=== PATIENT | male | born 1955 | race Caucasian/White ===

== ENCOUNTER 2021-03-18 11:33 | Inpatient (IN) ==
--- NOTE | 2021-03-18 11:46 | Emergency Department Note ---
Impression & Plan Atypical chest pain, Hypertension, Hyperglycemia ED Provider Note NAME: FRANCESCA BUCIO AGE: 65 SEX: M : 1955 ARRIVES VIA: Walk-In INFORMANT: Patient, ED PROVIDER(S): Marcelino Sánchez MD Chief Complaint: Chest pain and arm pain HPI: Patient does present with the above symptoms. Patient states he was at wo rk he did get diaphoretic but had no nausea or vomiting describes some left- sided chest pain with separate left arm pain. Patient describes it as an achiness. Currently rated a 5 out of 10. Patient denies any prior history of heart or lung disease. Non-smoker. The patient does not have any prior history of DVT or PE. Patient denies any fevers chills or or lower extremity swelling. Patient is vaccinated for Covid denies upper respiratory or infectious symptoms. Patient is right-hand dominant denies any trauma to the left upper extremity or overuse. The patient did not take anything prior to arrival. Patient states it does feel slightly improved. Prior. The patient dates that before was 7 out of 10. Patient states that his father of an undisclosed problem in his 40s. He is unsure as to whether not it was heart related. No other reported stroke or heart disease in parents or siblings before the age of 65. ROS: See HPI for pertinent positives and negatives. A total of 10 systems were reviewed and otherwise negative. Past medical history: See below Surgical history: See below Social history: See below Physical Exam: GENERAL: NAD, wearing a mask, non-toxic. EYE EXAM: Normal conjunctiva. PERRL, no anisocoria and EOM's grossly intact w/o pain. NECK: Supple, no nuchal rigidity, no adenopathy, non-tender. No signs of meningismus. LUNGS: Clear to auscultation. Normal chest wall mechanics. HEART: NSR, no MRG. ABDOMEN: Abdomen soft, non-tender, normo-active bowel sounds, no masses, no rebound or guarding. BACK: No CVA TTP. SKIN: No rashes and no bruising. UPPER EXTREMITIES: Upper extremities are grossly normal. LOWER EXTREMITIES: Grossly normal, no edema. Negative Homans' sign bilaterally. NEURO EXAM: A&O x3, cranial nerves II-XII grossly intact, normal speech, moves all 4 extremities on command w/o issue. Differential diagnoses: Cardiac ischemia, aortic dissection, pulmonary embolism, pneumothorax, pneumonia, pericarditis, myocarditis, esophageal rupture, GERD, cholecystitis, pancreatitis, musculoskeletal, as well as other pathologies. Course: Patient was seen and evaluated the bedside. Full history physical exam was performed. EKG interpreted by me Sinus, rate of 97, normal intervals, normal axis, no ST changes. Imaging Studies: See Below Cardiac monitoring: An order was placed for continuous cardiac monitoring. The monitor shows a rate of 92 with sinus rhythm. MDM: Patient did present with concern for chest pain or pain. Patient did have blood work completed. EKG with no obvious ST changes. Patient's blood work does show acute hyperglycemia. The patient states that he was always "borderline." I did discuss with the patient that he has diabetes. The patient did have improvement with nitro and aspirin. Given this and the heart score of 4 I did speak with the on-call hospitalist and the patient was admitted to the medicine service by Dr. Peña. Past Med/Surg History Medical History GERD (gastroesophageal reflux disease) Hypertension Surgical History No pertinent past surgical history Social History Smoking Status: Never smoker Hx Alcohol Use: No Hx Substance Use: No Preferred Language: Malaysian current occupational status: employed current occupation: [employer] Feels Safe at Home: Yes Allergies Allergies Allergy/AdvReac Type Severity Reaction Status Date / Time acetaminophen AdvReac Severe Congested Unverified 03/18/21 15:06 ~ scratchy throat Home Meds Home Medications Medication Instructions Recorded Confirmed lisinopril 40 mg tablet (Zestril) 40 mg PO QAM 03/18/21 03/18/21 omeprazole 40 mg capsule,delayed 40 mg PO QAM 03/18/21 03/18/21 release Results & Data (ED) Vital Signs Vital Signs - 24 hr 03/18/21 11:39 03/18/21 11:51 03/18/21 12:00 Temperature 36.9 C Temperature Source Temporal Artery Scan Pulse Rate 104 H 97 H 99 H Pulse Rate from SpO2 Sensor 96 H 100 H Respiratory Rate 20 12 24 Respiratory Effort / Characteristics Non-Labored Accessory Muscle Use Respiratory Depth Normal Blood Pressure 179/111 H 169/107 H 166/128 H Blood Pressure Mean 133 127 140 Blood Pressure Position Sitting Pulse Oximetry 97 99 98 Oxygen Delivery Method Room Air Oxygen Flow Rate Sepsis Recent Fever Within 48 Hours No Sepsis New/Unexplained Change in Mental Status N/A Sepsis Action Taken by Nursing No Action Required 03/18/21 12:19 03/18/21 12:30 03/18/21 13:00 Temperature Temperature Source Pulse Rate 93 H 92 H Pulse Rate from SpO2 Sensor 92 H 91 H Respiratory Rate 14 13 Respiratory Effort / Characteristics Respiratory Depth Blood Pressure 162/100 H 149/103 H Blood Pressure Mean 120 118 Blood Pressure Position Pulse Oximetry 98 97 99 Oxygen Delivery Method Nasal Cannula Oxygen Flow Rate 0 Sepsis Recent Fever Within 48 Hours Sepsis New/Unexplained Change in Mental Status Sepsis Action Taken by Nursing 03/18/21 13:30 03/18/21 14:00 03/18/21 14:30 Temperature Temperature Source Pulse Rate 93 H 92 H 90 Pulse Rate from SpO2 Sensor 94 H 93 H 88 Respiratory Rate 7 L 17 10 L Respiratory Effort / Characteristics Respiratory Depth Blood Pressure 163/100 H 141/82 H 149/78 H Blood Pressure Mean 121 101 101 Blood Pressure Position Pulse Oximetry 94 96 96 Oxygen Delivery Method Oxygen Flow Rate Sepsis Recent Fever Within 48 Hours Sepsis New/Unexplained Change in Mental Status Sepsis Action Taken by Nursing 03/18/21 15:00 03/18/21 15:30 03/18/21 16:00 Temperature Temperature Source Pulse Rate 87 86 87 Pulse Rate from SpO2 Sensor 87 Respiratory Rate 11 L 16 10 L Respiratory Effort / Characteristics Respiratory Depth Blood Pressure 163/110 H 159/99 H 156/101 H Blood Pressure Mean 127 119 119 Blood Pressure Position Pulse Oximetry 98 Oxygen Delivery Method Oxygen Flow Rate Sepsis Recent Fever Within 48 Hours Sepsis New/Unexplained Change in Mental Status Sepsis Action Taken by Nursing 03/18/21 16:30 Temperature Temperature Source Pulse Rate 84 Pulse Rate from SpO2 Sensor 86 Respiratory Rate 15 Respiratory Effort / Characteristics Respiratory Depth Blood Pressure 158/101 H Blood Pressure Mean 120 Blood Pressure Position Pulse Oximetry 95 Oxygen Delivery Method Oxygen Flow Rate Sepsis Recent Fever Within 48 Hours Sepsis New/Unexplained Change in Mental Status Sepsis Action Taken by [facility] Medications Current Medication List: was personally reviewed by me Laboratory Data Attestation: I reviewed the patient's lab results. Result diagrams: 03/18/21 11:51 03/18/21 11:51 Lab Results 03/18/21 03/18/21 03/18/21 Range/Units 11:51 11:51 11:51 WBC 9.01 (4.8-10.8) K/uL RBC 4.66 L (4.7-6.1) M/uL Hgb 16.1 (14.0-18.0) g/dL Hct 45.8 (42-52) % MCV 98.3 (80-100) fL MCH 34.5 H (25-34) pg MCHC 35.2 (32-36) g/dL RDW Std Deviation 43.3 (36.4-46.3) fL RDW Coeff of Silke 12.3 (11.5-14.5) % Plt Count 279 (130-400) K/uL MPV 10.2 (7.4-10.4) fL Immature Gran % (Auto) 0.2 % Neut % (Auto) 64.9 % Lymph % (Auto) 26.5 % [place] % (Auto) 5.7 % Eos % (Auto) 2.0 % Baso % (Auto) 0.7 % Neut # (Auto) 5.85 (1.4-6.5) K/uL Lymph # (Auto) 2.39 (1.2-3.4) K/uL [place] # (Auto) 0.51 (0.11-0.59) K/uL Eos # (Auto) 0.18 (0-0.5) K/uL Baso # (Auto) 0.06 (0-0.2) K/uL Immature Gran # (Auto) 0.02 (0.00-0.02) K/uL APTT 27.3 (21.0-31.0) Seconds PTT Ratio 1.0 Sodium 134 L (136-145) mmol/L Potassium 4.0 (3.5-5.1) mmol/L Chloride 99 (98-107) mmol/L Carbon Dioxide 25 (21-32) mmol/L Anion Gap 11.0 (3-11) BUN 14 (7-18) mg/dl Creatinine 1.30 (0.6-1.4) mg/dl Est Cr Clr Drug Dosing 65.6 ml/min Est GFR ( Amer) 67.3 ml/min Est GFR (Non-Af Amer) 58.1 ml/min BUN/Creatinine Ratio 10.5 (10-20) Glucose 472 H* (70-99) mg/dl POC Glucose (70-99) mg/dl Calcium 9.2 (8.5-10.1) mg/dl Total Bilirubin 0.5 (0.2-1) mg/dl AST 13 L (15-37) U/L ALT 34 (12-78) U/L Alkaline Phosphatase 74 (45-117) U/L Troponin I < 0.015 (0-0.045) ng/ml Total Protein 8.1 (6.4-8.2) gm/dl Albumin 4.2 (3.4-5.0) gm/dl Globulin 3.9 (2.5-4.0) gm/dl Albumin/Globulin Ratio 1.1 (0.9-2) Lipase 147 (73-393) U/L Beta-Hydroxybutyric Acd 1.12 (0.2-2.81) mg/dl COVID-19 Eval Order SARS-CoV-2 (PCR) (Negative) 03/18/21 03/18/21 03/18/21 Range/Units 14:56 14:56 14:57 WBC (4.8-10.8) K/uL RBC (4.7-6.1) M/uL Hgb (14.0-18.0) g/dL Hct (42-52) % MCV (80-100) fL MCH (25-34) pg MCHC (32-36) g/dL RDW Std Deviation (36.4-46.3) fL RDW Coeff of Silke (11.5-14.5) % Plt Count (130-400) K/uL MPV (7.4-10.4) fL Immature Gran % (Auto) % Neut % (Auto) % Lymph % (Auto) % [place] % (Auto) % Eos % (Auto) % Baso % (Auto) % Neut # (Auto) (1.4-6.5) K/uL Lymph # (Auto) (1.2-3.4) K/uL [place] # (Auto) (0.11-0.59) K/uL Eos # (Auto) (0-0.5) K/uL Baso # (Auto) (0-0.2) K/uL Immature Gran # (Auto) (0.00-0.02) K/uL APTT (21.0-31.0) Seconds PTT Ratio Sodium (136-145) mmol/L Potassium (3.5-5.1) mmol/L Chloride (98-107) mmol/L Carbon Dioxide (21-32) mmol/L Anion Gap (3-11) BUN (7-18) mg/dl Creatinine (0.6-1.4) mg/dl Est Cr Clr Drug Dosing ml/min Est GFR ( Amer) ml/min Est GFR (Non-Af Amer) ml/min BUN/Creatinine Ratio (10-20) Glucose (70-99) mg/dl POC Glucose 349 H* (70-99) mg/dl Calcium (8.5-10.1) mg/dl Total Bilirubin (0.2-1) mg/dl AST (15-37) U/L ALT (12-78) U/L Alkaline Phosphatase (45-117) U/L Troponin I (0-0.045) ng/ml Total Protein (6.4-8.2) gm/dl Albumin (3.4-5.0) gm/dl Globulin (2.5-4.0) gm/dl Albumin/Globulin Ratio (0.9-2) Lipase (73-393) U/L Beta-Hydroxybutyric Acd (0.2-2.81) mg/dl COVID-19 Eval Order Covid19 at [facility] SARS-CoV-2 (PCR) NEGATIVE (Negative) Administered Medications Sodium Chloride (Nss) 500 mls @ 250 mls/hr IV .Q2H JASMIN Stop: 04/17/21 14:59 Last Admin: 03/18/21 15:59 Dose: 250 mls/hr Documented by: [id number] Nitroglycerin (Nitroglycerin Sl 0.4 Mg/Tab Tab) 0.4 mg SL PRN PRN PRN Reason: Chest Pain Stop: 04/17/21 13:10 Last Admin: 03/18/21 13:43 Dose: 0.4 mg Documented by: [id number] Nitroglycerin (Nitroglycerin 2% Ointment 30gm Tube) 1 inch EXT Q6H JASMIN Stop: 04/17/21 15:59 Last Admin: 03/18/21 16:11 Dose: 1 inch Documented by: [id number] Discontinued Medications Acetaminophen (Acetaminophen 500 Mg Tab) 1,000 mg PO NOW STA Stop: 03/18/21 13:12 Last Admin: 03/18/21 13:17 Dose: Not Given Documented by: [id number] Aspirin (Aspirin Chew 324 Mg) 324 mg PO NOW STA Stop: 03/18/21 13:12 Last Admin: 03/18/21 13:17 Dose: 324 mg Documented by: [id number] Nitroglycerin (Nitroglycerin Sl 0.4 Mg/Tab Tab) 0.4 mg SL NOW STA Stop: 03/18/21 13:12 Last Admin: 03/18/21 13:18 Dose: 0.4 mg Documented by: [id number] Imaging Data Radiologist's Impression: Chest X-Ray 03/18/21 12:17 XR chest 1V portable HISTORY: 65 years-old Male Chest Pain acute atypical chest pain COMPARISON: None TECHNIQUE: Portable AP view of the chest FINDINGS: Cardiac silhouette is upper limits of normal in size. Mild mediastinal widening may be projectional. No pneumothorax, pleural effusion, airspace consolidation or overt pulmonary edema. Degenerative changes of the shoulders and spine. IMPRESSION: No acute process. ACT 112: Negative or not required by law. The above report was generated using voice recognition software. It may contain grammatical, syntax or spelling errors. Electronically signed by: Jordi Hahn M.D. 03/18/2021 1:22 PM Discharge Plan Visit Data Chief Complaint: Cardiac Assessment Stated Complaint: SWEATING AND WEAKNESS IN ARMS ED Provider: Marcelino Sánchez Discharge Problem: Atypical chest pain, Hypertension, Hyperglycemia Patient Disposition: Admitted As Inpatient Forms Stand Alone Forms: [facility] Prescriptions Prescriptions: No Action omeprazole 40 mg capsule,delayed release(DR/EC) 40 mg PO QAM RF: 0 lisinopril [Zestril] 40 mg tablet 40 mg PO QAM RF: 0 Referrals Referrals: PCP,NO [Physician] -
[2021-03-18 12:28] LABS: Basophils # (auto) 0.06 K/uL (0-0.2); Basophils % (auto) 0.7 %; Eosinophils # (auto) 0.18 K/uL (0-0.5); Hematocrit (blood only) 45.8 % (42-52); Hemoglobin 16.1 g/dL (14.0-18.0); Immature Granulocytes # (auto) 0.02 K/uL (0.00-0.02); Immature Granulocytes % (auto) 0.2 %; Lymphocytes # (auto) 2.39 K/uL (1.2-3.4); Lymphocytes % (auto) 26.5 %; Mean Corpuscular Hemoglobin 34.5 pg (25-34); Mean Corpuscular Hgb Conc 35.2 g/dL (32-36); Mean Corpuscular Volume 98.3 fL (80-100); Mean Platelet Volume 10.2 fL (7.4-10.4); Monocytes # (auto) 0.51 K/uL (0.11-0.59); Monocytes % (auto) 5.7 %; Neutrophils # (auto) 5.85 K/uL (1.4-6.5); Neutrophils % (auto) 64.9 %; Platelet Count 279 K/uL (130-400); RDW Coefficient of Variation 12.3 % (11.5-14.5); RDW Standard Deviation 43.3 fL (36.4-46.3); Red Blood Count 4.66 M/uL (4.7-6.1); White Blood Count 9.01 K/uL (4.8-10.8)
[2021-03-18 12:39] LABS: Partial Thromboplastin Time 27.3 Seconds (21.0-31.0)
[2021-03-18 12:46] LABS: Alanine Aminotransferase 34 U/L (12-78); Albumin Globulin Ratio 1.1 (0.9-2); Albumin Level 4.2 gm/dl (3.4-5.0); Alkaline Phosphatase 74 U/L (45-117); Aspartate Aminotransferase 13 U/L (15-37); BUN Creatinine Ratio 10.5 (10-20); Bilirubin,Total 0.5 mg/dl (0.2-1); Blood Urea Nitrogen 14 mg/dl (7-18); Calcium 9.2 mg/dl (8.5-10.1); Carbon Dioxide 25 mmol/L (21-32); Chloride 99 mmol/L (98-107); Creatinine Clr Calc Pharmacy 65.6 ml/min; Est GFR (African American) 67.3 ml/min; Est GFR (Non-African American) 58.1 ml/min; Globulin 3.9 gm/dl (2.5-4.0); Glucose 472 mg/dl (70-99); Lipase 147 U/L (73-393); Sodium 134 mmol/L (136-145); Total Protein 8.1 gm/dl (6.4-8.2); Troponin I < 0.015 ng/ml (0-0.045)
[2021-03-18 13:06] LABS: Beta-Hydroxybutyrate 1.12 mg/dl (0.2-2.81)
[2021-03-18] MEDS ORDERED: NITROGLYCERIN SL 0.4 MG/TAB TAB SL STA (13:11)
[2021-03-18] MEDS ORDERED: NITROGLYCERIN SL 0.4 MG/TAB TAB SL PRN (13:11)
[2021-03-18] MEDS ORDERED: ACETAMINOPHEN 500 MG TAB PO STA (13:11)
[2021-03-18] MEDS ORDERED: ASPIRIN CHEW 324 MG PO STA (13:11)
--- NOTE | 2021-03-18 13:24 | XRay Report ---
XR chest 1V portable HISTORY: 65 years-old Male Chest Pain acute atypical chest pain COMPARISON: None TECHNIQUE: Portable AP view of the chest FINDINGS: Cardiac silhouette is upper limits of normal in size. Mild mediastinal widening may be projectional. No pneumothorax, pleural effusion, airspace consolidation or overt pulmonary edema. Degenerative darnell ges of the shoulders and spine. IMPRESSION: No acute process. ACT 112: Negative or not required by law. The above report was generated using voice recognition software. It may contain grammatical, syntax o r spelling errors. Electronically signed by: Jordi Hahn M.D. 03/18/2021 1:22 PM
--- NOTE | 2021-03-18 15:15 | History & Physical Report ---
Date of Service March 18, 2021 Assessment & Plan (1) Left arm pain: Plan: Exertional chest tightness and left arm pain/diaphoresis/hypertension- The patient will be admitted to telemetry for serial cardiac enzymes, serial EKG's, cardiac rhythm monitoring and a 2-D echocardiogram with Dopplers. Symptoms were completely relieved by given aspirin and nitroglycerin sublingual in the ED Start aspirin 81 mg daily Continue lisinopril 40 mg every morning Add Nitropaste 1 inch anterior chest wall every 6 hours (2) Diaphoresis: Plan: See above (3) Hypertension: Plan: See above (4) Hyperglycemia: Plan: Initial glucose 472 on BMP Follow-up fingerstick was 349 Give 500 cc normal saline, and recheck Place on Accu-Cheks before meals and at bedtime with NovoLog coverage per scale Check hemoglobin A1c and fasting lipid panel (5) GERD (gastroesophageal reflux disease): Plan: Continue omeprazole/pantoprazole History of Present Illness Chief Complaint: The patient presents to the emergency department after having a episode at work of severe sweats and left arm pain of duration 30 to 45 minutes, that was partially relieved by rest, and remained relieved by aspirin insulin nitroglycerin in the ED. Primary Care Provider: Wilfred Weber MD The patient is a 65-year-old male with a past medical history including hypertension cervical disc disease, and GERD, with a recent 20 pound weight loss, who presents to the emergency department with acute episode noted at work. He has not had these symptoms before. He does have history of cervical disc disease that causes some neck discomfort and right shoulder discomfort. He denies any associated lightheadedness, dizziness or near syncopal symptoms. Allergies Allergy/AdvReac Type Severity Reaction Status Date / Time acetaminophen AdvReac Severe Congested Unverified 03/18/21 15:06 ~ scratchy throat Home Medications Medication Instructions Recorded Confirmed Type lisinopril 40 mg tablet (Zestril) 40 mg PO QAM 03/18/21 03/18/21 History omeprazole 40 mg capsule,delayed 40 mg PO QAM 03/18/21 03/18/21 History release Past Med/Surg History Medical History (Updated 03/18/21 @ 15:50 by Alex Delgado MD) GERD (gastroesophageal reflux disease) Hypertension Surgical History No pertinent past surgical history Social History Smoking Status: Never smoker Hx Alcohol Use: No Hx Substance Use: No Preferred Language: Maltese current occupational status: employed current occupation: [employer] mechanic Feels Safe at Home: Yes Review of Systems Review of Systems: The patient denies palpitations, shortness of breath, dyspnea on exertion, cough, lower extremity swelling, sore throat, fevers, chills, sweats, weight change, fatigue, nausea, vomiting, diarrhea , constipation, abdominal pain, pelvic pain, blood in urine or stool, dysuria, urinary frequency or urgency, lightheadedness, dizziness, headache, memory loss, loss of consciousness, rash, abnormal bruising or bleeding, imbalance, focal or generalized weakness, numbness or tingling in legs, generalized arthralgias or myalgias, or night sweats. The review of systems is otherwise negative other than for that already noted above, and at least 10 systems have been reviewed. Physical Exam Physical Exam: The patient is awake, alert and oriented 3, well developed and well nourished, normocephalic and atraumatic, lying in bed and in no acute distress. HEENT--PERRL, EOMI, mucous membranes and oropharynx normal Neck--supple. No JVD. No bruits. Thyroid normal, trachea midline, no adenopathy. Heart--normal S1 and S2. No murmurs, rubs or gallops. Lungs--clear bilaterally, no respiratory distress, no accessory muscle use. Abdomen--normal bowel sounds and soft. Nontender. Nondistended, no hernias or masses, no organomegaly. Extremities--no cyanosis or clubbing. No edema. . Dermatologic--normal skin turgor, normal color, no abnormal lymph nodes, no rash. Neurologic--cranial nerves II through XII grossly intact. Rheumatologic--normal range of motion. Psychiatric--normal affect. Results & Data Results & Data ([facility]) Vital Signs (Past 12 Hours) Vital Signs Temp Pulse Resp BP Pulse Ox 03/18/21 14:30 90 10 L 149/78 H 96 03/18/21 14:00 92 H 17 141/82 H 96 03/18/21 13:30 93 H 7 L 163/100 H 94 03/18/21 13:00 92 H 13 149/103 H 99 03/18/21 12:30 93 H 14 162/100 H 97 03/18/21 12:19 98 03/18/21 12:00 99 H 24 166/128 H 98 03/18/21 11:51 97 H 12 169/107 H 99 03/18/21 11:39 98.4 F 104 H 20 179/111 H 97 Laboratory Results Laboratory Results WBC 9.01 K/uL (4.8-10.8) 03/18/21 11:51 RBC 4.66 M/uL (4.7-6.1) L 03/18/21 11:51 Hgb 16.1 g/dL (14.0-18.0) 03/18/21 11:51 Hct 45.8 % (42-52) 03/18/21 11:51 MCV 98.3 fL (80-100) 03/18/21 11:51 MCH 34.5 pg (25-34) H 03/18/21 11:51 MCHC 35.2 g/dL (32-36) 03/18/21 11:51 RDW Std Deviation 43.3 fL (36.4-46.3) 03/18/21 11:51 RDW Coeff of Silke 12.3 % (11.5-14.5) 03/18/21 11:51 Plt Count 279 K/uL (130-400) 03/18/21 11:51 MPV 10.2 fL (7.4-10.4) 03/18/21 11:51 Immature Gran % (Auto) 0.2 % 03/18/21 11:51 Neut % (Auto) 64.9 % 03/18/21 11:51 Lymph % (Auto) 26.5 % 03/18/21 11:51 [place] % (Auto) 5.7 % 03/18/21 11:51 Eos % (Auto) 2.0 % 03/18/21 11:51 Baso % (Auto) 0.7 % 03/18/21 11:51 Neut # (Auto) 5.85 K/uL (1.4-6.5) 03/18/21 11:51 Lymph # (Auto) 2.39 K/uL (1.2-3.4) 03/18/21 11:51 [place] # (Auto) 0.51 K/uL (0.11-0.59) 03/18/21 11:51 Eos # (Auto) 0.18 K/uL (0-0.5) 03/18/21 11:51 Baso # (Auto) 0.06 K/uL (0-0.2) 03/18/21 11:51 Immature Gran # (Auto) 0.02 K/uL (0.00-0.02) 03/18/21 11:51 APTT 27.3 Seconds (21.0-31.0) 03/18/21 11:51 PTT Ratio 1.0 03/18/21 11:51 Sodium 134 mmol/L (136-145) L 03/18/21 11:51 Potassium 4.0 mmol/L (3.5-5.1) 03/18/21 11:51 Chloride 99 mmol/L (98-107) 03/18/21 11:51 Carbon Dioxide 25 mmol/L (21-32) 03/18/21 11:51 Anion Gap 11.0 (3-11) 03/18/21 11:51 BUN 14 mg/dl (7-18) 03/18/21 11:51 Creatinine 1.30 mg/dl (0.6-1.4) 03/18/21 11:51 Est Cr Clr Drug Dosing 65.6 ml/min 03/18/21 11:51 Est GFR ( Amer) 67.3 ml/min 03/18/21 11:51 Est GFR (Non-Af Amer) 58.1 ml/min 03/18/21 11:51 BUN/Creatinine Ratio 10.5 (10-20) 03/18/21 11:51 Glucose 472 mg/dl (70-99) H* 03/18/21 11:51 POC Glucose 349 mg/dl (70-99) H* 03/18/21 14:57 Calcium 9.2 mg/dl (8.5-10.1) 03/18/21 11:51 Total Bilirubin 0.5 mg/dl (0.2-1) 03/18/21 11:51 AST 13 U/L (15-37) L 03/18/21 11:51 ALT 34 U/L (12-78) 03/18/21 11:51 Alkaline Phosphatase 74 U/L (45-117) 03/18/21 11:51 Troponin I < 0.015 ng/ml (0-0.045) 03/18/21 11:51 Total Protein 8.1 gm/dl (6.4-8.2) 03/18/21 11:51 Albumin 4.2 gm/dl (3.4-5.0) 03/18/21 11:51 Globulin 3.9 gm/dl (2.5-4.0) 03/18/21 11:51 Albumin/Globulin Ratio 1.1 (0.9-2) 03/18/21 11:51 Lipase 147 U/L (73-393) 03/18/21 11:51 Beta-Hydroxybutyric Acd 1.12 mg/dl (0.2-2.81) 03/18/21 11:51 COVID-19 Eval Order Covid19 at [facility] 03/18/21 14:56 Impressions Chest X-Ray 03/18/21 12:17 XR chest 1V portable HISTORY: 65 years-old Male Chest Pain acute atypical chest pain COMPARISON: None TECHNIQUE: Portable AP view of the chest FINDINGS: Cardiac silhouette is upper limits of normal in size. Mild mediastinal widening may be projectional. No pneumothorax, pleural effusion, airspace consolidation or overt pulmonary edema. Degenerative changes of the shoulders and spine. IMPRESSION: No acute process. ACT 112: Negative or not required by law. The above report was generated using voice recognition software. It may contain grammatical, syntax or spelling errors. Electronically signed by: Jordi Hahn M.D. 03/18/2021 1:22 PM Code Status & VTE Plan Code Status Full code VTE Prophylaxis Plan VTE Prophylaxis will be ordered: Yes PG Care Time/CCT Total # of Minutes Spent Total Time Spent with Patient: Total time spent is greater than 50% in coordination of care (as documented) at patient's floor/unit and/or counseling patient: Coding Level of Care Code INT OBSERVATION CARE 70M LVL 3 Diagnoses Hypertension I10 GERD (gastroesophageal reflux disease) K21.9 Diaphoresis R61 Left arm pain M79.602 Hyperglycemia R73.9
[2021-03-18] MEDS: SODIUM CHLORIDE 0.9% 500 ML IV SCH ×4 (15:59→22:00)
--- NOTE | 2021-03-18 16:06 | Electrocardiogram Report ---
Test Reason : Blood Pressure : / mmHG Vent. Rate : 097 BPM Atrial Rate : 097 BPM P-R Int : 144 ms QRS Dur : 088 ms QT Int : 362 ms P-R-T Axes : 043 003 044 degrees QTc Int : 459 ms Poor data quality, interpretation may be adversely affected Sinus rhythm with occasional Premature ventricular complexes Otherwise normal ECG No previous ECGs available Confirmed by Cuauhtemoc Arenas ([id number]) on 03/18/2021 4:06:10 PM Referred By: REFERRED SELF Confirmed By:Roberto Arenas
[2021-03-18] MEDS: NITROGLYCERIN 2% OINTMENT 30GM TUBE EXT SCH ×2 (16:11→20:54)
[2021-03-18] MEDS ORDERED: GLUCOSE 10 TABS/TUBE PO PRN (19:46)
[2021-03-18] MEDS ORDERED: GLUCOSE 40% GEL 15 GM TUBE PO PRN (19:46)
[2021-03-18] MEDS ORDERED: ONDANSETRON INJ 2 MG/ML 2 ML VIAL IV PRN (19:46)
[2021-03-18] MEDS ORDERED: DEXTROSE 50% 50 ML SYRINGE IV PRN (19:46)
[2021-03-18] MEDS ORDERED: CARBOHYDRATES FOR HYPOGLYCEMIA PO PRN (19:46)
[2021-03-18] MEDS ORDERED: GLUCAGON FOR INJ 1 MG VIAL SQ PRN (19:46)
[2021-03-18] MEDS ORDERED: NSS + 20MEQ KCL 20 MEQ/1,000 ML BAG IV SCH (20:15)
[2021-03-18] MEDS: INSULIN ASPART 100 UNITS/ML 3 ML PEN SC SCH ×2 (20:56→21:00)
[2021-03-18] MEDS ORDERED: METOPROLOL TARTRATE 25 MG TAB PO STA (21:14)
[2021-03-18] MEDS ORDERED: Influenza Vaccine (Fluarix) 0.5 ML SYR (Standard Dose) IM ONE (22:00)
[2021-03-18] MEDS ORDERED: Nursing to Pharmacy Communication SCH (22:45)
[2021-03-19] MEDS ORDERED: Heparin IV Adult Wt-Based Standard *NO* Bolus Protocol IV ONE (02:04)
[2021-03-19] MEDS: HEPARIN SODIUM/DEXTROSE 25,000 UNITS/500 ML BAG IV SCH ×2 (03:18→20:41)
[2021-03-19] MEDS: NITROGLYCERIN 2% OINTMENT 30GM TUBE EXT SCH ×4 (03:19→20:48)
[2021-03-19 04:03] LABS: Basophils # (auto) 0.05 K/uL (0-0.2); Basophils % (auto) 0.5 %; Eosinophils # (auto) 0.24 K/uL (0-0.5); Eosinophils % (auto) 2.2 %; Hematocrit (blood only) 39.9 % (42-52); Hemoglobin 13.8 g/dL (14.0-18.0); Immature Granulocytes # (auto) 0.02 K/uL (0.00-0.02); Immature Granulocytes % (auto) 0.2 %; Lymphocytes # (auto) 2.63 K/uL (1.2-3.4); Mean Corpuscular Hgb Conc 34.6 g/dL (32-36); Mean Corpuscular Volume 95.5 fL (80-100); Mean Platelet Volume 9.7 fL (7.4-10.4); Monocytes # (auto) 0.87 K/uL (0.11-0.59); Monocytes % (auto) 7.9 %; Neutrophils # (auto) 7.17 K/uL (1.4-6.5); Neutrophils % (auto) 65.2 %; Platelet Count 246 K/uL (130-400); RDW Coefficient of Variation 12.2 % (11.5-14.5); RDW Standard Deviation 42.6 fL (36.4-46.3); Red Blood Count 4.18 M/uL (4.7-6.1); White Blood Count 10.98 K/uL (4.8-10.8)
[2021-03-19 04:39] LABS: Albumin Level 3.1 gm/dl (3.4-5.0); BUN Creatinine Ratio 13.7 (10-20); Calcium 8.6 mg/dl (8.5-10.1); Creatinine Clr Calc Pharmacy 88.7 ml/min; Est GFR (African American) 98.3 ml/min; Est GFR (Non-African American) 84.9 ml/min; Magnesium 1.7 mg/dl (1.8-2.4)
[2021-03-19 04:43] LABS: Albumin Globulin Ratio 1.1 (0.9-2); Bilirubin,Total 0.9 mg/dl (0.2-1); Globulin 2.9 gm/dl (2.5-4.0); Troponin I 9.74 ng/ml (0-0.045)
[2021-03-19 05:40] LABS: Potassium 4.2 mmol/L (3.5-5.1)
[2021-03-19 07:34] LABS: Estimated Average Glucose 275 mg/dl; Hemoglobin A1C 11.2 % (4.5-5.6)
[2021-03-19] MEDS: INSULIN ASPART 100 UNITS/ML 3 ML PEN SC SCH ×3 (07:54→20:43)
--- NOTE | 2021-03-19 08:36 | Hospitalist Progress Note ---
Date of Service March 19, 2021 Assessment & Plan (1) NSTEMI (non-ST elevated myocardial infarction): (2) Hypertension: (3) Diabetes type 2, uncontrolled: Plan: 65-year-old male with a past medical history including hypertension cervical disc disease, and GERD, with a recent 20 pound weight loss, who presents to the emergency department with acute episode noted at work. (1) NSTEMI -Exertional chest tightness and left arm pain/diaphoresis/hypertension -Chest XR: no acute processes -EKG: Normal sinus with T wave abnormalities in inferior and lateral leads -on tele, Trops: 7.79 --> 9.7 --> trending -Echo: regional wall motion abnormalities, EF 30-35%, reduced left ventricular systolic dysfunction -Cath performed --> need for CABG, will be transferred to tertiary center, CABG expected on Wednesday -cont. heparin, metoprolol, NTG. -consider starting statin. (2) HTN -cont. lisinopril (3) DM2 -A1C 11.2, LDL 172, Chol 252, TG 183 -glucose was in 300s, now stable in 100s. On SSS. -following with pharmacy -In outpatient setting, consider placing patient on metformin, ozempic, and jardiance. May consider initiating tomorrow. Admission and Anticipated Discharge Date Admission Date: March 18, 2021 Supervising Physician Co-Signing Physician Notes Attending attestation Pt seen and examined in concert with Dr. Montague. In agreement with the documented findings as noted in the resident documentation with any exceptions or additions as noted here. Original presentation of chest discomfort resolved without resumption at rest or with light activity. On examination, S1/S2 nl RRR no MCG. CTAB. Abd NT/ND BS+ve NSTEMI - cardio consult - cath today - statin, ASA (and potentially Plavix), metoprolol. Heparin GTT - cards recommendation for transfer for CABG pending. New dx of DMII - ISS with basal - following discharge to assume metformin, GLP and SGLT for cardio protective properties Else see resident documentation as noted. Subjective Comfortable in bed. However, just came back from his heart cath and was sweating with some dark specs in his vision on the elevator ride back to his room. Denies chest pain, palpitations, SOB, fatigue, MENDOZA, N/V/D. Review of Systems Review of Systems: All systems reviewed & are unremarkable except as noted in HPI & below Physical Exam Constitutional: WD/WN, vitals as above well developed, well nourished and + acute distress Eyes: PERRL, conjunctivae normal, anicteric sclerae ENMT: external ear and nose normal, oropharynx normal Respiratory: normal respiratory effort, lungs clear to auscultation Cardiovascular: RRR, no murmur, no edema Vessels: no JVD Gastrointestinal (Abdomen): normal bowel sounds, soft, nontender, no hepatosplenomegaly Musculoskeletal: no cyanosis or clubbing, extremities motor strength 5/5 Skin: No rashes, warm, diaphoretic Neurologic: patellar DTR's 2+ bilat, sensation intact Psychiatric: A+Ox3, euthymic affect Results & Data Results & Data ([facility]) Vital Signs (Past 12 Hours) Vital Signs Temp Pulse Pulse Resp BP BP Pulse Ox 03/19/21 07:28 83 03/19/21 07:08 37.3 C 74 19 127/80 94 03/19/21 03:25 37.6 C H 81 16 133/88 97 03/18/21 23:26 37.8 C H 89 149/90 H 95 03/18/21 23:00 97 H 03/18/21 20:45 37.5 C 97 H 18 169/109 H 161/104 H 96 Resident Activity Tracking Resident Involvement: Resident Care Provided Care Provided: Adult Hospital Medicine (1) Hypertension Hypertension type: unspecified Qualified Code(s): I10 - Essential (primary) hypertension
[2021-03-19] MEDS ORDERED: PHARMACY GLYCEMIC MGMT CONSULT PRN (09:53)
--- NOTE | 2021-03-19 09:53 | Cardiology Consultation ---
Date of Consultation March 19, 2021 Assessment & Plan (1) NSTEMI (non-ST elevated myocardial infarction): Patient's symptoms and objective findings are all consistent with an acute coronary event. He certainly has risk factors for coronary disease including undiagnosed diabetes mellitus, significant hyperlipidemia, male gender and hypertension. His echocardiogram is curious in that the entire apex appears dyskinetic. This would suggest a significant infarct versus stress cardiomyopat hy. I would favor a the former given his risk factors, but we will need to perform coronary angiography in any regard. I did explain the risks benefits and alternatives to the patient. I recommended coronary angiography and will plan on proceeding later today. Continue systemic heparinization. Will continue nitropaste for now. He was given 1 dose of beta-blockade which we will continue. Continue lisinopril. (2) Cardiomyopathy: He has significantly reduced LV systolic function. No symptoms of heart failure. Likely related to his event yesterday. Most likely ischemic in nature. Hopefully he will have options for revascularization. An alternate possibility would be a stress cardiomyopathy. This would need to be managed medically. History of Present Illness Reason for Consultation: Chest pain, elevated troponin Requesting Physician: Danny Attending Physician: Ray Alba MD History of Present Illness The patient is a 65-year-old gentleman with a history of high blood pressure who experienced an episode of chest and left arm discomfort yesterday. The patient was at work but not performing strenuous activity. He states that the back of his left arm began to ache. This did not include jaw or back discomfort. It may been some element of chest pressure as well. Prior to development of the sy mptoms he was notably diaphoretic. He did not felt poorly her earlier in the day other than perhaps some mild tiredness. He cannot recall symptoms of this nature in the past. Due to the unusual in prolonged nature of the symptoms he presented to the emergency room where he was given nitroglycerin. This produced relief of his symptoms. They have not recurred. The patient states that generally speaking he can perform mild to moderate activity without symptom. He does not describe exertional chest discomfort or limiting dyspnea leading up to yesterday's episode. He denies dizziness or lig htheadedness. He has not been aware of any palpitations. No orthopnea or paroxysmal nocturnal dyspnea. He does endorse symptoms of indigestion. However, these been present for years. They occur spontaneously perhaps twice per week. Nonexertional. Allergies Allergy/AdvReac Type Severity Reaction Status Date / Time acetaminophen AdvReac Severe Congested Unverified 03/18/21 15:06 ~ scratchy throat Home Medications Medication Instructions Recorded Confirmed Type lisinopril 40 mg tablet (Zestril) 40 mg PO QAM 03/18/21 03/18/21 History omeprazole 40 mg capsule,delayed 40 mg PO QAM 03/18/21 03/18/21 History release Patient History Medical History GERD (gastroesophageal reflux disease) Hypertension Surgical History No pertinent past surgical history Social History Smoking Status: Never smoker Hx Alcohol Use: Yes Alcohol type: hard liquor Hx Substance Use: No Preferred Language: Cymro Communication Ability: Effective Supervisor Quilting Required: No Beliefs That Will Affect Care: None Current Living Situation: Spouse current occupational status: employed current occupation: [employer] Feels Safe at Home: Yes Assistive Devices: None Review of Systems Review of Systems: Per HPI. Physical Exam Physical Exam: The patient is alert and oriented. Mood and affect appeared normal. He answered all questions appropriately. HEENT: Pupils are equal and reactive to light and accommodation. Extraocular movements are intact. The sclerae are anicteric. Neuro: Cranial nerves intact (wearing mask) Lungs: Clear to auscultation bilaterally. He has good air movement without use of accessory muscles. No rales wheezes or rhonchi. Cardiac: Heart demonstrates a regular rate and rhythm. Normal S1 and S2. No murmurs on examination. Pulses: The patient has palpable radial pulses bilaterally that are equal in intensity Extremities: There was no evidence of hypoperfusion. There is no cyanosis or clubbing. There is no edema. Skin: I did not appreciate any rashes on examination today. Results & Data ([facility]) Vital Signs (Past 12 Hours) Vital Signs Temp Pulse Pulse Resp BP BP Pulse Ox 03/19/21 07:28 83 03/19/21 07:08 37.3 C 74 19 127/80 94 03/19/21 03:25 37.6 C H 81 16 133/88 97 03/18/21 23:26 37.8 C H 89 149/90 H 95 03/18/21 23:00 97 H Laboratory Results Abnormal Lab Results 03/18/21 03/18/21 03/18/21 11:51 11:51 11:51 WBC 9.01 RBC 4.66 L Hgb 16.1 Hct 45.8 MCV 98.3 MCH 34.5 H MCHC 35.2 RDW Std Deviation 43.3 RDW Coeff of Silke 12.3 Plt Count 279 MPV 10.2 Immature Gran % (Auto) 0.2 Neut % (Auto) 64.9 Lymph % (Auto) 26.5 Young % (Auto) 5.7 Eos % (Auto) 2.0 Baso % (Auto) 0.7 Neut # (Auto) 5.85 Lymph # (Auto) 2.39 Young # (Auto) 0.51 Eos # (Auto) 0.18 Baso # (Auto) 0.06 Immature Gran # (Auto) 0.02 APTT 27.3 PTT Ratio 1.0 Sodium 134 L Potassium 4.0 Chloride 99 Carbon Dioxide 25 Anion Gap 11.0 BUN 14 Creatinine 1.30 Est Cr Clr Drug Dosing 65.6 Est GFR ( Amer) 67.3 Est GFR (Non-Af Amer) 58.1 BUN/Creatinine Ratio 10.5 Glucose 472 H* POC Glucose Estimat Average Glucose Hemoglobin A1c Calcium 9.2 Magnesium Total Bilirubin 0.5 AST 13 L ALT 34 Alkaline Phosphatase 74 Troponin I < 0.015 Total Protein 8.1 Albumin 4.2 Globulin 3.9 Albumin/Globulin Ratio 1.1 Triglycerides Cholesterol LDL Cholesterol, Calc VLDL Cholesterol, Calc HDL Cholesterol Cholesterol/HDL Ratio Lipase 147 Beta-Hydroxybutyric Acd 1.12 COVID-19 Eval Order SARS-CoV-2 (PCR) 03/18/21 03/18/21 03/18/21 11:51 14:56 14:56 WBC RBC Hgb Hct MCV MCH MCHC RDW Std Deviation RDW Coeff of Silke Plt Count MPV Immature Gran % (Auto) Neut % (Auto) Lymph % (Auto) Young % (Auto) Eos % (Auto) Baso % (Auto) Neut # (Auto) Lymph # (Auto) Young # (Auto) Eos # (Auto) Baso # (Auto) Immature Gran # (Auto) APTT PTT Ratio Sodium Potassium Chloride Carbon Dioxide Anion Gap BUN Creatinine Est Cr Clr Drug Dosing Est GFR ( Amer) Est GFR (Non-Af Amer) BUN/Creatinine Ratio Glucose POC Glucose Estimat Average Glucose 275 Hemoglobin A1c 11.2 H Calcium Magnesium Total Bilirubin AST ALT Alkaline Phosphatase Troponin I Total Protein Albumin Globulin Albumin/Globulin Ratio Triglycerides Cholesterol LDL Cholesterol, Calc VLDL Cholesterol, Calc HDL Cholesterol Cholesterol/HDL Ratio Lipase Beta-Hydroxybutyric Acd COVID-19 Eval Order Covid19 at [facility] SARS-CoV-2 (PCR) NEGATIVE 03/18/21 03/18/21 03/18/21 14:57 17:04 20:04 WBC RBC Hgb Hct MCV MCH MCHC RDW Std Deviation RDW Coeff of Silke Plt Count MPV Immature Gran % (Auto) Neut % (Auto) Lymph % (Auto) Young % (Auto) Eos % (Auto) Baso % (Auto) Neut # (Auto) Lymph # (Auto) Young # (Auto) Eos # (Auto) Baso # (Auto) Immature Gran # (Auto) APTT PTT Ratio Sodium Potassium Chloride Carbon Dioxide Anion Gap BUN Creatinine Est Cr Clr Drug Dosing Est GFR ( Amer) Est GFR (Non-Af Amer) BUN/Creatinine Ratio Glucose POC Glucose 349 H* 275 H Estimat Average Glucose Hemoglobin A1c Calcium Magnesium Total Bilirubin AST ALT Alkaline Phosphatase Troponin I 7.790 H* Total Protein Albumin Globulin Albumin/Globulin Ratio Triglycerides Cholesterol LDL Cholesterol, Calc VLDL Cholesterol, Calc HDL Cholesterol Cholesterol/HDL Ratio Lipase Beta-Hydroxybutyric Acd COVID-19 Eval Order SARS-CoV-2 (PCR) 03/18/21 03/19/21 03/19/21 20:41 03:45 03:45 WBC 10.98 H RBC 4.18 L Hgb 13.8 L Hct 39.9 L MCV 95.5 MCH 33.0 MCHC 34.6 RDW Std Deviation 42.6 RDW Coeff of Silke 12.2 Plt Count 246 MPV 9.7 Immature Gran % (Auto) 0.2 Neut % (Auto) 65.2 Lymph % (Auto) 24.0 Young % (Auto) 7.9 Eos % (Auto) 2.2 Baso % (Auto) 0.5 Neut # (Auto) 7.17 H Lymph # (Auto) 2.63 Young # (Auto) 0.87 H Eos # (Auto) 0.24 Baso # (Auto) 0.05 Immature Gran # (Auto) 0.02 APTT PTT Ratio Sodium 138 Potassium 4.2 Chloride 106 Carbon Dioxide 25 Anion Gap 7.0 BUN 13 Creatinine 0.95 D Est Cr Clr Drug Dosing 88.7 Est GFR ( Amer) 98.3 Est GFR (Non-Af Amer) 84.9 BUN/Creatinine Ratio 13.7 Glucose 259 H POC Glucose 245 H Estimat Average Glucose Hemoglobin A1c Calcium 8.6 Magnesium 1.7 L Total Bilirubin 0.9 AST 43 H ALT 30 Alkaline Phosphatase 59 Troponin I 9.740 H* Total Protein 6.0 L D Albumin 3.1 L Globulin 2.9 Albumin/Globulin Ratio 1.1 Triglycerides 183 H Cholesterol 252 H LDL Cholesterol, Calc 172 VLDL Cholesterol, Calc 37 HDL Cholesterol 43 Cholesterol/HDL Ratio 6 Lipase Beta-Hydroxybutyric Acd COVID-19 Eval Order SARS-CoV-2 (PCR) 03/19/21 03/19/21 07:06 09:30 WBC RBC Hgb Hct MCV MCH MCHC RDW Std Deviation RDW Coeff of Silke Plt Count MPV Immature Gran % (Auto) Neut % (Auto) Lymph % (Auto) Young % (Auto) Eos % (Auto) Baso % (Auto) Neut # (Auto) Lymph # (Auto) Young # (Auto) Eos # (Auto) Baso # (Auto) Immature Gran # (Auto) APTT PTT Ratio Sodium Potassium Chloride Carbon Dioxide Anion Gap BUN Creatinine Est Cr Clr Drug Dosing Est GFR ( Amer) Est GFR (Non-Af Amer) BUN/Creatinine Ratio Glucose POC Glucose 270 H 344 H* Estimat Average Glucose Hemoglobin A1c Calcium Magnesium Total Bilirubin AST ALT Alkaline Phosphatase Troponin I Total Protein Albumin Globulin Albumin/Globulin Ratio Triglycerides Cholesterol LDL Cholesterol, Calc VLDL Cholesterol, Calc HDL Cholesterol Cholesterol/HDL Ratio Lipase Beta-Hydroxybutyric Acd COVID-19 Eval Order SARS-CoV-2 (PCR) Diagnostic Findings Chest x-ray obtained on admission not reveal any acute cardiopulmonary process. Echocardiogram demonstrated apical dyskinesis with reduced LV systolic function. Estimated ejection fraction 30%. No significant valvular heart disease. ECG Additional Comments: EKG obtained the time admission and this morning today demonstrated normal sinus rhythm. No significant ST or T-wave changes. PG Care Time/CCT Total # of Minutes Spent Total Time Spent with Patient: Total time spent is greater than 50% in coordi nation of care (as documented) at patient's floor/unit and/or counseling patient: Coding Level of Care Code 36864 Inpt Consult Level 4 Diagnoses NSTEMI (non-ST elevated myocardial infarction) I21.4 Cardiomyopathy I42.9
[2021-03-19 10:07] LABS: Partial Thromboplastin Ratio 1.6; Partial Thromboplastin Time 42.7 Seconds (21.0-31.0)
[2021-03-19] MEDS ORDERED: INSULIN GLARGINE SOLOSTAR 100 UNITS/ML 3 ML PEN SC STA (10:09)
[2021-03-19] MEDS ORDERED: INSULIN ASPART 100 UNITS/ML 3 ML PEN SC STA (10:13)
--- NOTE | 2021-03-19 10:23 | Pharmacy Report ---
Pharmacy Glycemic Short Note 2 - Date of Service March 19, 2021 - Glycemic Short BSG Results (Last 24 hours): 03/18/21 03/18/21 03/18/21 11:51 14:57 17:04 Glucose 472 H* POC Glucose 349 H* 275 H 03/18/21 03/19/21 03/19/21 20:41 03:45 07:06 Glucose 259 H POC Glucose 245 H 270 H 03/19/21 09:30 Glucose POC Glucose 344 H* OUTPATIENT ANTIDIABETIC REGIMEN: * N/a * HbA1c = 11.2% (03/18/21) ASSESSMENT: * 65 yo M admitted yesterday secondary to chest pain. He was noted to have hyperglycemia and was initially managed by hospitalist team. However, pharmacy has been consulted at this time to assist with inpatient glycemic management. Patient is a newly diagnosed type 2 diabetic based on above HbA1c. He is NPO currently for a cardiac catheterization today. * BSG yesterday were 349-275-245 mg/dL. Patient only received 2 units of Novolog last evening. * He is basal deficient and will require insulin upon discharge. BSG this AM was 270 mg/dL. Patient felt dizzy after ECHO this AM so repeat BSG was taken and found to be 349 mg/dL. This was after receiving 5 units of correctional/prandial insulin coverage this AM. * Will give a one time dose of Lantus 25 units now as well as 7 more units of Novolog to cover for hyperglycemia. * Will change Novolog to q6h given NPO status and recheck BSG at noon to make sure it is trending downwards. * If necessary, could start an insulin bolus/drip prior to cath today but expect BSGs to start trending down now that basal is on board. PLAN FOR INPATIENT GLYCEMIC CONTROL: * Basal insulin * Lantus 25 units SC x 1 * Lantus 8-16 units SC BID (see eMAR for more details) * Bolus insulin * NovoLog per scale ACHS or Q6hrs while NPO * Goal Range: Low 110 mg/dL - High 140 mg/dL * Correction Factor: 25 mg/dL/unit * Nutritional / Prandial insulin per carb ratio of 1 unit per 8 grams CHO consumed PLAN FOR DISCHARGE: * Newly diagnosed Type 2 Diabetic based on HbA1c of 11.2% upon admission. Goal HbA1c for this patient based on age and comorbidities is less than 7%. * Consider triple therapy with metformin + basal insulin + (GLP1-RA OR prandial insulin). * Recommend: * Metformin XR 500mg PO daily with evening meal. Typically the XR formulation of metformin is better tolerated than the immediate release formulation. Continue to titrate metformin dosing upwards as recommended. Dosage increases should be made in increments of 500 mg weekly, up to 2,000 mg/day PO, given in divided doses. Doses above 2000 mg/day may be better tolerated if divided and given 3 times per day with meals. Max: 2,550 mg/day PO, in divided doses * B12 supplementation may be necessary with middle or intermediate school principal metformin * Basal insulin: dosing to be determined * GPL1RA: This will be based off of insurance coverage and patient preference of weekly vs daily injection
--- NOTE | 2021-03-19 10:34 | XCELERA ---
[id number]
[2021-03-19] MEDS ORDERED: INSULIN ASPART 100 UNITS/ML 3 ML PEN SC SCH (12:00)
[2021-03-19] MEDS: METOPROLOL TARTRATE 25 MG TAB PO SCH ×2 (12:02→20:44)
[2021-03-19] MEDS ORDERED: niCARdipine HCL INJ 2.5 MG/ML 10 ML AMP ONE (14:01)
[2021-03-19] MEDS ORDERED: HEPARIN (PORCINE) 1000 UNIT/ML 10 ML (CATH LAB USE ONLY) ONE (14:01)
[2021-03-19] MEDS ORDERED: MIDAZOLAM HCL 1 MG/ML 2ML VIAL ONE (14:01)
[2021-03-19] MEDS ORDERED: fentaNYL citrate 100 MCG/2 ML VIAL ONE (14:01)
[2021-03-19] MEDS ORDERED: NITROGLYCERIN/D5W 100MCG/ML 20ML SYR ONE (14:02)
--- NOTE | 2021-03-19 14:31 | Cardiac Catheterization ---
[facility] Data: Electroformer Cardiac Status Clinical evaluation leading to the procedure CAD Presenation: Non STEMI Diagnostic Physicians Name: Cuauhtemoc Arenas MD Closure Device Recommendations: CABG Cardiac Cath Procedure Full Procedure Date March 19, 2021 Pre-Procedure Diagnosis Pre-Procedure Diagnosis: Non STEMI AUC Score AUC Score: 8 Post-Procedure Diagnosis Post-Procedure Diagnosis: Severe CAD Procedure(s) Performed Procedure(s) Performed: Coronary Angiography and Left Heart Cath Instructor Apparel Manufacture Cuauhtemoc Arenas MD Controlled Atmospheric Furnace Brazer(s) none Estimated Blood Loss Estimated Blood Loss: 7cc Medication(s) Medication(s): Fentanyl, Lidocaine 1%, Nicardipine, Nitroglycerin and Versed Summary of Findings Procedure performed: Left heart catheterization, selective coronary angiography Staff color laboratory technician: Cuauhtemoc Arenas MD Indication: The patient is a 65-year-old gentleman with a history of hypertension who presents with NSTEMI Procedure in detail: Patient was informed of the risk benefits and alternatives to the intended procedure. He understood and wished to proceed. He was taken to the cardiac catheterization suite in a fasting state. Conscious sedation was administered per protocol and the patient was monitored electrocardiographically throughout today's procedure. The right radial area is prepped and draped in usual sterile fashion. This area was anesthetized using subcutaneous ministration of lidocaine solution. The right radial artery was simply accessed using Seldinger technique and a sheath was placed over guidewire at this site. This sheath was used to facilitate passage of the cardiac catheters for selective coronary angiography and left heart catheterization. Images were obtained in multiple orthogonal views prior to removal of the catheter. Based on the images the patient was referred for immediate percutaneous intervention. Patient tolerated this portion of the procedure well. There were no immediate complications. Equipment used: 5 [place] 4 Findings: Coronary angiography Left main: Left main coronary was normal in size and caliber. It bifurcated normally into left anterior descending left circumflex arteries. No significant disease in this vessel. Left anterior descending colon left anterior descending was a relatively small vessel that barely reached the apex. It produced a small first diagonal branch and a large branching second diagonal system. The distal portion of the LAD was small. There was approximately 70% stenosis at the origin of the second diagonal branch. There was a 70% proximal stenosis of the second diagonal branch with distal disease as well. Left circumflex: Left circumflex was a nondominant vessel. It had a tapering 40% stenosis in its proximal portion. It produced a large first OM and 2 additional OM branches. No additional disease in this vessel. Right coronary artery: The right coronary was a large dominant vessel. It produced a large PLB system. The PDA had a complex nearly subtotaled lesion in its proximal portion. Impression: Multivessel coronary disease involving the LAD, D2 and PDA Right dominant coronary system No evidence of aortic stenosis Normal left ventricular filling pressures Hemodynamics Rest Ao:: 79/57 mmHg Final Ao: 109/71 mmHg LV: 82/2 mmHg LVEDP 5 mmHg Recommendations Recommendations: CABG Specimens Specimens: None Radiation Exposure (mGy) 665 Contrast (mls) 30 Procedural Complication(s) None Disposition PCU I attest to the content of the Intraoperative Record and any orders documented therein. Any exceptions are noted below. PG Care Time/CCT Total # of Minutes Spent Total Time Spent with Patient: Total time spent is greater than 50% in coordination of care (as documented) at patient's floor/unit and/or counseling patient:
--- NOTE | 2021-03-19 15:00 | Post Anesthesia Assessment ---
Date of Service March 19, 2021 Post Sedation Assessment Vital Signs Temp Pulse Pulse Resp BP BP BP 03/19/21 11:01 36.9 C 87 18 113/72 03/19/21 07:28 83 03/19/21 07:08 37.3 C 74 19 127/80 03/19/21 03:25 37.6 C H 81 16 133/88 03/18/21 23:26 37.8 C H 89 149/90 H 03/18/21 23:00 97 H 03/18/21 20:45 37.5 C 97 H 18 169/109 H 161/104 H 03/18/21 19:49 95 H 20 151/96 H 03/18/21 18:00 82 15 185/115 H 03/18/21 17:30 91 H 18 172/107 H 03/18/21 17:00 83 12 176/105 H 03/18/21 16:30 84 15 158/101 H 03/18/21 16:00 87 10 L 156/101 H 03/18/21 15:30 86 16 159/99 H 03/18/21 15:00 87 11 L 163/110 H Pulse Ox Pulse Ox 03/19/21 11:01 95 03/19/21 07:28 03/19/21 07:08 94 03/19/21 03:25 97 03/18/21 23:26 95 03/18/21 23:00 03/18/21 20:45 96 03/18/21 19:49 95 95 03/18/21 18:00 95 03/18/21 17:30 96 03/18/21 17:00 97 03/18/21 16:30 95 03/18/21 16:00 98 03/18/21 15:30 03/18/21 15:00 Recovery Score Activity: Moves 4 extremities Respiration: Deep Breath/Cough Circulation: +/-20% PreAnes Value Consciousness: Fully Awake Oxygen Saturation: > 92% On Room Air Discharge Sedation Level of Care: Fast Track Phase II Post Sedation Plan On clinical assessment, the patient appears to have tolerated the sedation without complications. Patient is recovering as anticipated. Patient will continue to be monitored by nursing and may be discharged when sedation discharge criteria are met per below protocol. Upon Completions of procedure up to 15 minutes continue every 5 minute vital signs and the P.A.R. score; then discharge to a Phase I or Fast Track to Phase II per the following guidelines: * Discharge Patient to appropriate Phase II area if PAR is 8 or greater or return to pre- procedure baseline. The post - procedure orders will be as directed. * If PAR score is less than 8 or not return to pre-procedure baseline then patient will follow Phase I monitoring till PAR is reached for Phase II. The Phase I may be done in procedure room or may call to secure a Phase I area. * If naloxone or flumazenil are used for reversal, hold in Phase I for continued monitoring from when last reversal dose was given for a minimum of 60 minutes or longer pending the nurse and/or physician discretion of patient condition before discharge to Phase II. Please call the Sedation Physician to re-evaluate and complete post-note for discharge to Phase II area. Do NOT discharge from procedure sedation or Phase 1 until post- sedation evaluation note is complete by procedure /sedation MD Sedation Discharge Instructions to be given to the patient at discharge to home.
[2021-03-19] MEDS ORDERED: Nursing to Pharmacy Communication SCH (17:15)
--- NOTE | 2021-03-19 17:47 | Electrocardiogram Report ---
Test Reason : Blood Pressure : / mmHG Vent. Rate : 084 BPM Atrial Rate : 084 BPM P-R Int : 142 ms QRS Dur : 100 ms QT Int : 372 ms P-R-T Axes : 065 -17 023 degrees QTc Int : 439 ms Normal sinus rhythm Nonspecific ST abnormality Abnormal ECG When compared with ECG of 18-MAR-2021 11:50, Premature ventricular complexes are no longer Present Nonspecific T wave abnormality now evident in Inferior leads Nonspecific T wave abnormality, worse in Lateral leads Confirmed by Cuauhtemoc Arenas ([id number]) on 03/19/2021 5:47:34 PM Referred By: REFERRED SELF Confirmed By:Roberto Arenas
[2021-03-19] MEDS ORDERED: INSULIN GLARGINE SOLOSTAR 100 UNITS/ML 3 ML PEN SC SCH (21:00)
[2021-03-19 21:35] LABS: Partial Thromboplastin Ratio 1.9
[2021-03-19 21:45] LABS: Partial Thromboplastin Time 49.3 Seconds (21.0-31.0)
--- NOTE | 2021-03-20 06:54 | Discharge Summary ---
Date of Service March 20, 2021 Principal Diagnosis NSTEMI, severe multivessel CAD Discharge Exam Unable to see patient this morning and perform physical exam due to transfer. Discharge Data Allergies Allergy/AdvReac Type Severity Reaction Status Date / Time acetaminophen AdvReac Severe Congested Unverified 03/18/21 15:06 ~ scratchy throat Consultations 03/18/21 14:33 ED Decision to Admit Stat 03/19/21 07:47 Consult Cardiology Routine Procedures Performed Operation Date: 03/19/21 14:00 Actual Procedures p Cineradiography w/Routine Exam - Ray Arenas MD s Cath, Left with Cors and Vent - Ray Arenas MD Ordered Studies 03/19/21 13:43 CL Cath Imgs for PACS use only Routine Diabetes Follow up Diabetes Follow-up Needed for HgbA1c >9%,Newly Diagnosed Diabetes Hospital Course (1) NSTEMI (non-ST elevated myocardial infarction): 65-year-old male with a past medical history including hypertension, GERD, admitted for diaphoresis and anginal concerns and found to have severe multivessel CAD requiring CABG. NSTEMI: -Presented with exertional chest tightness and left arm pain/diaphoresis/hypertension. -Chest XR: no acute processes. -Trops: <0.015 -> 7.790 --> 9.740 --> 6.540. -EKG: Normal sinus with T wave abnormalities in inferior and lateral leads. -Echo: regional wall motion abnormalities, EF 30-35%, reduced left ventricular systolic dysfunction. -Cath performed --> multivessel disease with need for CABG; transferred to [facility] this evening. -Cont. heparin gtt in-transit. -Will need general secondary prevention medications with statin, beta domonique, FLORENTINO/ARB, prn nitro, BSG control. -Follow up with Dr. Weber outpatient after discharge from [facility]. DM2: -A1C 11.2 -Patient discharged to [facility] on basal/bolus insulin; in general will need tighter control, and can consider GLP-1 for cardiac benefit. HLD: -LDL 172, Chol 252, TG 183. -CAD secondary prevention with high intensity statin recommended. Total Time Total Time Spent Total Time Spent (In Minutes): See Attestation Discharge Plan Discharge Items Patient Disposition: Transfer Acute Care Hospital Reason For Visit: CHEST/LEFT ARM PAIN, DIAPHORESIS Discharge Diagnosis: severe multivessel CAD Activity: Per Instructions section Non-emergency contact: Primary Care Provider and Oracle Programmer Analyst Call non-emergency contact if: you have any medication questions Follow-up/Referrals: Wilfred Weber MD [Primary Care Provider] - Diet: Heart Healthy Addtl Attending Provider Instructions: 65-year-old male with a past medical history including hypertension, GERD, admitted for diaphoresis and anginal concerns and found to have severe multivessel CAD requiring CABG. NSTEMI: -Presented with exertional chest tightness and left arm pain/diaphoresis/hypertension. -Chest XR: no acute processes. -Trops: <0.015 -> 7.790 --> 9.740 --> 6.540. -EKG: Normal sinus with T wave abnormalities in inferior and lateral leads. -Echo: regional wall motion abnormalities, EF 30-35%, reduced left ventricular systolic dysfunction. -Cath performed --> multivessel disease with need for CABG; transferred to [facility] this evening. -Cont. heparin gtt in-transit. -Will need general secondary prevention medications with statin, beta domonique, FLORENTINO/ARB, prn nitro, BSG control. -Follow up with Dr. Weber outpatient after discharge from [facility]. DM2: -A1C 11.2 -Patient discharged to [facility] on basal/bolus insulin; in general will need tighter control, and can consider GLP-1 for cardiac benefit. HLD: -LDL 172, Chol 252, TG 183. -CAD secondary prevention with high intensity statin recommended. Pending Studies at Discharge: No Stand-Alone Forms: My [facility] Skilled Items Patient informed of condition?: Yes DNR: No Discharge Level of Care: Other Communicable Disease: No Discharge Prognosis: Stable Lines: Peripheral IV Urinary Catheter: No Medications and DC Order Prescriptions: Continued omeprazole 40 mg capsule,delayed release(DR/EC) 40 mg PO QAM RF: 0 lisinopril [Zestril] 40 mg tablet 40 mg PO QAM RF: 0 Discharge Orders: Discharge Order (Routine); Ordered 03/19/21 Ordered By: Catherine Jimenez Admission Data Admit Date/Time: 03/19/21 12:37 Attending Provider: Ray Alba Admit Provider: Alex Delgado Primary Care Provider: Wilfred Weber Other Providers: Alex Delgado ; Ray Arenas Resident Activity Tracking Resident Involvement: Resident Care Provided Care Provided: Adult [facility] Medicine
== END 2021-03-19 22:38 | disposition short-term general hospital (02) | DRG 281 ==
LOC: ED 11:33 → EDINP 11:33 → SUATTDRO 15:14 → 2S 20:11

== ENCOUNTER 2021-11-05 05:55 | Inpatient (IN) ==
--- NOTE | 2021-10-31 10:22 | PAT Medication Instructions ---
Medication Instructions Date of Service October 31, 2021 Home Medications aspirin 81 mg chewable tablet 81 mg PO QAM atorvastatin 80 mg tablet 80 mg PO QPM clopidogrel 75 mg tablet 75 mg PO QAM metoprolol tartrate 25 mg tablet 25 mg PO BID pantoprazole 40 mg tablet,delayed release 40 mg PO QPM lisinopril 5 mg tablet 5 mg PO QPM metformin 750 mg tablet,extended release 24 hr 750 mg PO BID ASK your prescriber and surgeon aspirin 81 mg chewable tablet 81 mg PO QAM clopidogrel 75 mg tablet 75 mg PO QAM DO NOT take the morning of surgery metformin 750 mg tablet,extended release 24 hr 750 mg PO BID Take morning of surgery With a small sip of water, OTHERWISE NOTHING TO EAT OR DRINK AFTER MIDNIGHT: metoprolol tartrate 25 mg tablet 25 mg PO BID Take evening before surgery atorvastatin 80 mg tablet 80 mg PO QPM metoprolol tartrate 25 mg tablet 25 mg PO BID pantoprazole 40 mg tablet,delayed release 40 mg PO QPM lisinopril 5 mg tablet 5 mg PO QPM metformin 750 mg tablet,extended release 24 hr 750 mg PO BID Other Notes If you have any questions please call us at [phone] or [phone] or [phone] or [phone]
--- NOTE | 2021-11-03 10:01 | Anesthesiology Consultation ---
Date of Service November 03, 2021 Assessment & Plan (1) Encounter for pre-operative examination: Chart Review Chart Review: Acceptable Risk for Surgery and Patient NOT seen in Pre Admission Testing -Discussed case with Dr. Joaquin- recommended to send note to cardio inquiring if there are any contraindications to surgery since having CABG in Mar 2021. Per cardio response via [employer] note 11/04/21= "unless he is having new symptoms (ie. progressive dyspnea on exertion, chest pain, dizziness, syncope, palpitations), he seemed to have a reasonable activity level when I saw him last. I don't think he would benefit from any additional pre-operative testing." (Pt has good functional status with no cardiac symptosm at [facility] appt 11/03/21) - Check BSG AM DOS Per [facility] appt on 11/03/21, patient returned from [facility] 10/25/21 (no large group activities). No known Covid positive exposures or Covid related symptoms. No known Covid infection in the past 90 days. Preop Covid testing done 11/03/21= negative. Educated on importance of self quarantining, social distancing and wearing mask in public for the patient one week prior to surgery and after Covid testing done History Surgery Operation Date: 11/05/21 07:30 Proposed Procedures p Right Carotid Endarterectomy - Jeff Perera MD Height/Weight Height: 5 ft 9 in Weight: 89.1 kg Allergies Allergy/AdvReac Type Severity Reaction Status Date / Time acetaminophen AdvReac Intermediate Congested Verified 10/30/21 14:49 ~ scratchy throat Medications Home Medications Medication Instructions Recorded Confirmed Last Taken aspirin 81 mg chewable tablet 81 mg PO QAM tab 04/23/21 10/30/21 Unknown atorvastatin 80 mg tablet 80 mg PO QPM 04/23/21 10/30/21 Unknown clopidogrel 75 mg tablet 75 mg PO QAM tab 04/23/21 10/30/21 Unknown metoprolol tartrate 25 mg tablet 25 mg PO BID 04/23/21 10/30/21 Unknown pantoprazole 40 mg tablet,delayed 40 mg PO QPM tab 04/23/21 10/30/21 Unknown release lisinopril 5 mg tablet 5 mg PO QPM 10/30/21 10/30/21 Unknown metformin 750 mg tablet,extended 750 mg PO BID 10/30/21 10/30/21 Unknown release 24 hr Past Medical History Medical History Barretts esophagus Gets routine EGDs- stable per patient Cardiomyopathy Resolved per cardio records EF 50-55% per 06/2021 ECHO Coronary artery disease CABG x3 03/21/2021: Barreto to LAD, saphenous vein graft to diagonal, saphenous vein graft to PDA Diabetes type 2, uncontrolled Glucose stable per patient - improved recently- fasting glucose usually below 150 GERD (gastroesophageal reflux disease) Well controlled and stable Hyperlipidemia Hypertension NSTEMI (non-ST elevated myocardial infarction) (~03/19/21) Had heart cath @ [facility] no stents--sent to [facility] for CABG x3 (03/21/21)---follows with Dr. Arenas On anticoagulant therapy Plavix daily Exercise / Class Metabolic Activity II 4-5 Yardwork/Stairs/Walk up hill (one flight of stairs - no chest pain or SOB ) Past Family History Family History Other No family history of adverse response to anesthesia Past Surgical History Surgical History History of cardiac cath (~03/19/21) for NSTEMI @ [facility]- had subsequent CABG History of colonoscopy History of coronary artery bypass graft x 3 (~03/21/21) @ [facility] History of esophagogastroduodenoscopy (EGD) History of open reduction and internal fixation (ORIF) procedure left foot--hardware in place History of tooth extraction Past Anesthesia History No Hx of Anesthesia Complications and No Family Hx of Anesthesia Complications History of PONV No Hx of PONV Social History Smoking Status: Never smoker Do You Dip or Chew Tobacco: No Hx Alcohol Use: Yes Alcohol type: hard liquor alcohol intake frequency: 0-2 drinks per day (1-2 drinks/day ) Hx Substance Use: No substance use type: does not use Review of Systems Hx of snoring- no witnessed apnea- no hx of sleep study Patient denies chest pain, shortness of breath, dyspnea on exertion, cough, wheezing, palpitations. No hx of seizures, stroke. No hx of blood clots or blood transfusions Physical Exam Vital Signs VITALS BP 132/73 P 66 TEMP 97.6 SP02 99% RESP 16 Constitutional no acute distress ENMT Mouth: no TMJ clicking Thyromental Distance: > or= 3.5 Finger Breadths (3.5) Mallampati Class: II Neck neck extension not limited Respiratory normal respiratory effort; no respiratory distress Auscultation: lungs clear to auscultation bilaterally; no wheezes Cardiovascular Rate/Rhythm: regular rate and regular rhythm Heart Sounds: no murmur Vessels: no carotid bruit Musculoskeletal Spine: no pain with cervical ROM Extremities: extremities normal to inspection Psychiatric Orientation: alert Lab Results Anesthesia Preop Results Results Anesthesia Widget: WBC 7.35 K/uL (4.8-10.8) 11/03/21 Hgb 12.9 g/dL (14.0-18.0) L 11/03/21 Hct 38.8 % (42-52) L 11/03/21 Plt 250 K/uL (130-400) 11/03/21 Na 138 mmol/L (136-145) 11/03/21 K 4.7 mmol/L (3.5-5.1) 11/03/21 Cl 104 mmol/L (98-107) 11/03/21 CO2 28 mmol/L (21-32) 11/03/21 BUN 20 mg/dl (6-23) 11/03/21 Creat 1.15 mg/dl (0.6-1.4) 11/03/21 Glucose Level 224 mg/dl (70-99(Fasting)) H 11/03/21 PT 12.2 Seconds (9.0-12.0) H 11/03/21 PTT 27.6 Seconds (21.0-31.0) 11/03/21 INR 1.2 (0.9-1.1) H 11/03/21 HA1c 6.8 % (4.5-5.6) H 11/03/21 Blood Type A Positive 11/03/21 Antibody Screen NEGATIVE 11/03/21 Testing Electrocardiogram Date: 11/03/21 Findings: + SB @ (59bpm) Low voltage QRS. Septal infarct, age undetermined Lateral infarct, age undetermined. When compared to EKG from March 19, 2021- lateral infarct is now present, nonspecific T wave abnormality no longer evident in inferior leads per cardio. (Pt has nonspecific T wave abnormality in lateral leads during NSTEMI on 03/19/21 EKG- had subsequent CABG- did [facility] message Dr. Arenas re: EKG results) Chest X-Ray Date: 11/03/21 Findings: + NAD Echocardiogram Date: 07/02/21 EF: 50-55% LV Function: normal Other Findings: + diastolic dysfunction (Grade I ) Abnormal (paradoxical) septal motion consistent with post operative status. Left atrium is mildly dilated. Mild MR. Cardiac Catheterization Date: 03/19/21 LM= normal in size and caliber LAD= 70% stenosis at the origin of the second diagonal branch. 70% proximal stenosis of the second diagonal branch with distal disease as well. LCx= 40% stenosis in proximal portion. RCA= PDA had complex nearly subtotaled lesion in proximal portion (Pt was referred to [facility] to have 3 vessel CABG on 03/21/21- Barreto to LAD, saphenous vein graft to diagonal, saphenous vein graft to PDA) Other Testing Neck CTA 11/03/21= Severe stenosis of the right internal carotid just past the bifurcation (near complete occlusion of right ICA). Atherosclerotic disease is seen bilaterally. Assessment of stenosis of the internal carotid arteries is based on NASCET criteria. Cerebrovascular duplex 10/29/2021 = 80-99% stenosis in the right internal carotid artery. No hemodynamically significant stenosis in the left internal carotid artery. Antegrade flow in bilateral vertebral arteries. Normal flow in the bilateral subclavian arteries.
[2021-11-05] MEDS ORDERED: ceFAZolin 2000MG 2,000 MG/15 ML SYR IV ONE (06:15)
[2021-11-05] MEDS ORDERED: ONDANSETRON INJ 2 MG/ML 2 ML VIAL ONE (06:45)
[2021-11-05] MEDS ORDERED: DEXAMETHASONE SOD INJ 4 MG/ML VIAL ONE (06:45)
[2021-11-05] MEDS ORDERED: ROCURONIUM BROMIDE 10 MG/ML 5 ML VIAL IV ONE (06:45)
[2021-11-05] MEDS ORDERED: LIDOCAINE 2% 2 ML VIAL/AMP(20MG/ML) INFIL ONE (06:45)
[2021-11-05] MEDS ORDERED: fentaNYL citrate 100 MCG/2 ML VIAL ONE (06:46)
[2021-11-05] MEDS ORDERED: MIDAZOLAM HCL 1 MG/ML 2ML VIAL ONE (06:46)
[2021-11-05] MEDS ORDERED: fentaNYL citrate 100 MCG/2 ML VIAL IV PRN (06:49)
[2021-11-05] MEDS ORDERED: ePHEDrine sulfate 50 MG/ML AMP IV PRN (06:49)
[2021-11-05] MEDS ORDERED: ATROPINE SULFATE 0.1 MG/ML 10ML SYR IV PRN (06:49)
[2021-11-05] MEDS ORDERED: HYDROmorphone INJ 2 MG/ML SYR/VIAL IV PRN (06:49)
[2021-11-05] MEDS ORDERED: ONDANSETRON INJ 2 MG/ML 2 ML VIAL IV PRN (06:49)
[2021-11-05] MEDS ORDERED: LIDOCAINE 1% LOCAL 20 ML VIAL ONE (07:07)
[2021-11-05] MEDS ORDERED: HEPARIN (PORCINE) 1000 UNIT/ML 10 ML (CATH LAB USE ONLY) ONE (07:07)
[2021-11-05] MEDS: LACTATED RINGER'S 1,000 ML IV SCH (07:07)
[2021-11-05] MEDS ORDERED: ceFAZolin 330 MG/ML 1 GM VIAL ONE ×2 (07:07→07:11)
--- NOTE | 2021-11-05 07:07 | History & Physical Report ---
Date of Service November 05, 2021 History of Present Illness Primary Care Provider: Wilfred Weber MD October 30, 2021 Name: FRANCESCA SLADE Patient Number: [id number] : 1955 Date of Service: 10/30/2021 Dear ,, I had the pleasure today of meeting Mr. Slade at [facility] vascular surgery clinic with Dr. Perera. As you are aware, he is a very pleasant 66 years old male with significant past medical history of hypertension, diabetes and co ronary artery disease. He has been having intermittent visual changes over the last 3 months. He described it as intermittent vision loss affecting only the right eye. It got worse with time and today he got evaluated by ophthalmology. This was initially attributed to diabetes however, a duplex ultrasound of the carotid artery demonstrated significant stenosis. He denies weakness or numbness, he does not have a slurred speech. his symptoms are isolated for right amaurosis fugax. He is functionally independent in ambulates without difficulty. He does not have claudication or rest pain. He is able to climb a flight of stairs without difficulty. He sleeps on 2 small pillows but he does not have shortness of breath. Of note, Mr. Slade underwent emergent CABG back in March from which he recovered with no complications. He was kept on aspirin and Plavix since the procedure. REVIEW OF SYSTEMS: 14 point ROS was performed, pertinent positive and negative aspects were mentioned in the HPI PAST MEDICAL HISTORY: Hypertension, GERD, type 2 diabetes, history of esophageal stricture, CAD status post CABG March 2021. PAST SURGICAL HISTORY: CABG March 2021, serial dilation for Bass's esophagus. SOCIAL HISTORY: Never smoker, functionally independent FAMILY HISTORY: Noncontributory MEDICATIONS: Pantoprazole 40 mg daily, atorvastatin 80 mg daily, metoprolol tartrate 25 mg twice daily, Plavix 75 mg daily, aspirin 81 mg daily, lisinopril 5 mg daily, metformin 750 mg ALLERGIES: Acetaminophen, bee sting PHYSICAL EXAM: VITALS: BP 164/86 on the left, 166/80 on the right, heart rate 64, satting 98% on room air GENERAL: Sitting comfortably in chair no acute distress CARDS: Regular PULM: Nonlabored breathing on room air ABDOMEN: Soft EXTREMITIES: Warm, well-perfused. Palpable pedal and radial pulses NEURO: Grossly intact cranial nerves II through XII. Intact motor and sensory function. IMAGING: Right ICA with peak systolic velocity of 451, end-diastolic 238, ICA to CCA ratio 8.8 indicating 80 to 99% stenosis of the right ICA. No hemostatic dynamically significant stenosis of the left ICA. Antegrade flow in bilateral vert.. ASSESSMENT AND PLAN: In summary, Mr. Slade is a very pleasant 66-year-old male with is symptomatic severe right carotid artery stenosis. We counseled him regarding the signs and symptoms of stroke and advised him to call [phone] imme diately should he develop those symptoms. He is consented to undergo right carotid endarterectomy next week. He may continue his aspirin and Plavix as indicated throughout the surgery. His grandson is graduating college in [place] on Wednesday and he requested his surgery to be afterwards. We will discuss that with our schedulers. Thank you for entrusting us with the care of this patient. Please do not hesitate to call us with questions or concerns. I saw and evaluated the patient. Discussed with the resident and agree with the resident's findings and plan as documented in the resident's note. Signature Line Electronic Signature on File CC: Cuauhtemoc Arenas MD [address] [facility] [address] * CC: Shraddha Rhodes DO [address] [place] [address] CC: Wilfred Weber MD [address] [place] [id number] Nikkie Seals MD Author Signature Dt/Tm: 10/30/2021 01:00 PM Resident Division of Vascular Surgery Electronically Reviewed/Signed by: MD Chris Post Signature Dt/Tm: 11/03/2021 12:03 PM Field Hand Pan Gaitan [facility] [address], [address] [place] [address] BN Result Type: .Outpt Ltr Date of Service: October 30, 2021 12:48 EDT Authorization Status: Final Author or Import Date: MD Seals Besma on October 30, 2021 12:51 EDT Verified By: MD Dilma, Jeff Fletcher on November 03, 2021 12:03 EDT Encounter info: [id number], [place] [id number], Clinic, 10/30/2021 - 10/30/2021 Allergies Allergy/AdvReac Type Severity Reaction Status Date / Time acetaminophen AdvReac Intermediate Congested Verified 11/05/21 06:20 ~ scratchy throat bee venom protein (honey bee) AdvReac Intermediate swelling Verified 11/05/21 06:21 at site of sting Home Medications Medication Instructions Recorded Confirmed Type aspirin 81 mg chewable tablet 81 mg PO QAM tab 04/23/21 11/05/21 History atorvastatin 80 mg tablet 80 mg PO QPM 04/23/21 11/05/21 History clopidogrel 75 mg tablet 75 mg PO QAM tab 04/23/21 11/05/21 History metoprolol tartrate 25 mg tablet 25 mg PO BID 04/23/21 11/05/21 History pantoprazole 40 mg tablet,delayed 40 mg PO QPM tab 04/23/21 11/05/21 History release lisinopril 5 mg tablet 5 mg PO QPM 10/30/21 11/05/21 History metformin 750 mg tablet,extended 750 mg PO BID 10/30/21 11/05/21 History release 24 hr Past Med/Surg History Medical History Barretts esophagus Gets routine EGDs- stable per patient Cardiomyopathy Resolved per cardio records EF 50-55% per 06/2021 ECHO Coronary artery disease CABG x3 03/21/2021: Barreto to LAD, saphenous vein graft to diagonal, saphenous vein graft to PDA Diabetes type 2, uncontrolled Glucose stable per patient - improved recently- fasting glucose usually below 150 GERD (gastroesophageal reflux disease) Well controlled and stable Hyperlipidemia Hypertension NSTEMI (non-ST elevated myocardial infarction) (~03/19/21) Had heart cath @ [facility] no stents--sent to [facility] for CABG x3 (03/21/21)---follows with Dr. Arenas On anticoagulant therapy Plavix daily Surgical History History of cardiac cath (~03/19/21) for NSTEMI @ [facility]- had subsequent CABG History of colonoscopy History of coronary artery bypass graft x 3 (~03/21/21) @ [facility] History of esophagogastroduodenoscopy (EGD) History of open reduction and internal fixation (ORIF) procedure left foot--hardware in place History of tooth extraction Family History Other No family history of adverse response to anesthesia Social History Smoking Status: Never smoker Second Hand Exposure: No; Do You Dip or Chew Tobacco: No; Tobacco Cessation Education Requested by Patient: No Hx Alcohol Use: Yes Alcohol type: hard liquor Hx Substance Use: No Preferred Language: Stateless Communication Ability: Effective State Tested Nursing Assistant Required: No Beliefs That Will Affect Care: None Current Living Situation: Spouse current occupational status: employed current occupation: [employer] Other Information That Helps Us Care for You: No Feels Safe at Home: Yes Safety Concerns: Feels Safe At This Time Assistive Devices: None Results & Data ([facility]) Vital Signs (Past 12 Hours) Vital Signs Temp Pulse Resp BP BP Pulse Ox 11/05/21 06:15 37 C 56 L 18 140/79 139/75 100
[2021-11-05] MEDS ORDERED: GELATIN SPONGE SZ 100 ONE (07:08)
[2021-11-05] MEDS ORDERED: THROMBIN FOR SOLN 20000 UNIT KIT ONE (07:08)
--- NOTE | 2021-11-05 07:08 | History & Physical Bridge Note ---
Date of Service November 05, 2021 History & Physical Bridge Note Patient with string sign on CTA. Admitted for a right CEA. I have discussed the risks options and benefits of the procedure with the patient. The patient understands the risks options and benefits and agrees to the procedure. I have examined the patient, reviewed the History & Physical and in the interval since the performance of the History & Physical I have noted the following changes of clinical significance: no changes noted
[2021-11-05] MEDS ORDERED: EPINEPHrine INJ 1 MG/ML AMP ONE (07:09)
[2021-11-05] MEDS ORDERED: REMIFENTANIL HCL 1 MG VIAL ONE (07:09)
[2021-11-05] MEDS ORDERED: BUPIVACAINE 0.5 % 5 MG/1 ML MPF 30ML VIAL ONE (07:10)
[2021-11-05] MEDS ORDERED: SUGAMMADEX SODIUM 200 MG/2 ML VIAL IV ONE (08:27)
[2021-11-05] MEDS ORDERED: ePHEDrine sulfate 50 MG/ML SYR ONE (08:28)
[2021-11-05] MEDS ORDERED: ATROPINE SO4 1 MG/ML 1ML VIAL ONE (08:28)
--- NOTE | 2021-11-05 08:51 | Operative Report ---
Post Operative Report Pre & Post Diagnosis Operation Date: 11/05/21 07:30 Pre-Op Diagnosis: Right Internal Carotid Artery Stenosis Post-Op Diagnosis: Right Internal Carotid Artery Stenosis I identified the patient and participated in the time-out.: Yes Procedure Operation Date: 11/05/21 07:30 Actual Procedures p Attempted Right Carotid Endarterectomy(Right) - Jeff Perera MD Surgeon Jeff Perera MD Watchstander Nikkie Seals MD; Shanel OCAMPO Estimated Blood Loss 5 Findings See Below heart block at the beginning of the procedure. Aborted and stapled the incision Specimens none Anesthesia Type General Complications heart block at induction Indications 66 yo M with hx of CAD s/p CABG with symptomatic severe right carotid artery stenosis. Patient was consented to undergo Right carotid endarterectomy Description of Procedure The patient was taken to the operating room and placed in supine position. After general anesthesia was accomplished the Right-side of the neck was prepped and draped in a sterile manner. The patient was identified and a timeout performed. A longitudinal neck incision was then made coursing along the medial border of the sternocleidomastoid muscle. The incision was taken down through the platysmal layer. However, patient developed heart block with heart rate dropping to 30s and no P wave appreciated. Meanwhile, his blood pressure was t rending down. He received atropine, glycopyrrolate, and ephedrine. Heart rate started to come up slowly as well as the blood pressure. Decision was made to abort the procedure. skin was approximated with casper. Patient was extubated. He had intact neuro exam. was updated. all counts were correct. Dr. Perera was present for the entirety of the case. I attest to the content of the Intraoperative Record and any orders documented therein. Any exceptions are noted below.
--- NOTE | 2021-11-05 08:54 | Post Operative Brief Note ---
Immediate Post Op Note v1 Date of Surgery November 05, 2021 Pre & Post Diagnosis Operation Date: 11/05/21 07:30 Pre-Op Diagnosis: Right Internal Carotid Artery Stenosis Post-Op Diagnosis: Right Internal Carotid Artery Stenosis I identified the patient and participated in the time-out.: Yes Procedure Operation Date: 11/05/21 07:30 Actual Procedures p Attempted Right Carotid Endarterectomy(Right) - Jeff Perera MD Surgeon Jeff Perera MD Detacker Nikkie Seals MD; Shanel OCAMPO Estimated Blood Loss 5 Findings Consistent with Post-Op Diagnosis Anesthesia Type General Complications intra op junctional rhythm Disposition Accompanied Patient To Recovery: No Disposition: Recovery Room
--- NOTE | 2021-11-05 09:57 | Cardiology Consultation ---
Date of Consultation November 05, 2021 Assessment & Plan (1) Junctional bradycardia: Mr. Slade is a 66 year old male with a history of Hypertension, Dyslipidemia, Type 2 Diabetes Mellitus, Resolved Cardiomyopathy (LVEF 50% to 55%), Multivessel CAD s/p NSTEMI 03/18/21 s/p CABG x 3 Vessels 03/21/21 (RENNER to LAD, SVG to D2, SVG to PDA), and High Grade SHARONDA Stenosis who is here today for a Right Carotid Endarterectomy -- however, during the surgery the patient developed a Junctional Bradycardia with heart rates in the 30's and 40's. Surgeon did not feel comfortable proceeding with the surgery, so the surgery was stopped, and the surgical incision was closed and dressed. As per the Anesthesiology team "After the skin was incised and the surgical team was working down through/manipulating the subcutaneous tissues and muscles/tissues overlying the right carotid artery, apparently the patient's systolic blood pressure suddenly jumped up into the 180's and according to the ekg monitor the patient went from a NSR in the 70's to sinus bradycardia in the 40's and 50's followed by the development of a junctional bradycardia with heart rates in the 30's to 40's." The ENGLISH LANGUAGE LEARNER TUTOR administered Atropine and Ephedrine -- and shortly thereafter the patient's heart rate increased and he resumed a normal sinus rhythm. The patient is now in the PACU with stable vital signs, normal sinus rhythm, and his extremities are well perfused. Patient offers no complaints at this time. This was most likely a reflexive bradycardia/junctional bradycardia secondary to carotid artery baroreceptor stimulation (spike in SBP, manual manipulation of carotid and overlying tissues). -- No further evaluation is necessary at this time. -- Avoid excessive pressure/manipulation of either carotid artery. -- Recommend proceeding with Right CEA when the surgeon and patient are able. -- Keep Atropine and Ephedrine available for intra-operative use if this recurs. (2) Coronary artery disease: Multivessel CAD s/p NSTEMI 03/18/21 s/p CABG x 3 Vessels 03/21/21 (RENNER to LAD, SVG to D2, SVG to PDA). Resolved Cardiomyopathy (LVEF 50% to 55% on Echocardiogram June 2021). Patient is asymptomatic from a cardiac standpoint. -- Continue Lopressor 25 mg b.i.d.. -- Continue Aspirin 81 mg daily. -- Continue Plavix 75 mg daily. -- Continue Lisinopril 5 mg daily. -- Continue Atorvastatin 80 mg daily. (3) Dyslipidemia: -- Continue Atorvastatin 80 mg daily. (4) Hypertension: Blood pressures have been normal to mildly hypertensive. -- Continue current anti-hypertensive regimen. Thank you for asking us to see this patient in consultation. If we can be of any further service to you, please contact [facility]. History of Present Illness Reason for Consultation: -- Intra-operative Junctional Bradycardia. Requesting Physician: Jeff Perera MD Attending Physician: Wilfred Rousseau MD History of Present Illness Mr. Slade is a 66 year old male with a history of Hypertension, Dyslipidemia, Type 2 Diabetes Mellitus, Resolved Cardiomyopathy (LVEF 50% to 55%), Multivessel CAD s/p NSTEMI 03/18/21 s/p CABG x 3 Vessels 03/21/21 (RENNER to LAD, SVG to D2, SVG to PDA), and High Grade SHARONDA Stenosis who is here today for a Right Carotid Endarterectomy -- however, during the surgery the patient developed a Junctional Bradycardia with heart rates in the 30's and 40's. Surgeon did not feel comfortable proceeding with the surgery, so the surgery was stopped, and the surgical incision was closed and dressed. I spoke to the patient's attending anesthesiologist and ENGLISH LANGUAGE LEARNER TUTOR to get more specific details regarding the events that took place. After the skin was incised and the surgical team was working down through/manipulating the subcuta neous tissues and muscles/tissues overlying the right carotid artery, apparently the patient's systolic blood pressure suddenly jumped up into the 180's and according to the ekg monitor the patient went from a NSR in the 70's to sinus bradycardia in the 40's and 50's followed by the development of a junctional bradycardia with heart rates in the 30's to 40's. ENGLISH LANGUAGE LEARNER TUTOR administered Atropine and Ephedrine -- and shortly thereafter the patient's heart rate increased and he resumed a normal sinus rhythm. I am seeing the patient in the PACU and he offers no complaints at this time. He does not recall any of the above events as he was under the influence of anesthesia. He denies any history of slow heart rhythms or bradycardias in the past, and he does not have any history syncope or near syncope. Leading up to this surgery, patient has able to perform his usual activities of daily living, walk, climb stairs, etc. without limiting cardiopulmonary symptoms or angina pectoris. He specifically denies any exertional chest pain, heaviness, tightness, pressure, or discomfort. He denies any exertional neck, jaw, back, or arm pain. He denies any shortness of breath, unusual dyspnea on exertion, recent changes in exertional tolerance, orthopnea, or PND. He denies any palpitations, tachy-palpitations, or any history of fainting. Patient did take his usual medications this morning with the exception of Metformin which was held. Allergies Allergy/AdvReac Type Severity Reaction Status Date / Time acetaminophen AdvReac Intermediate Congested Verified 11/05/21 06:20 ~ scratchy throat bee venom protein (honey bee) AdvReac Intermediate swelling Verified 11/05/21 06:21 at site of sting Home Medications Medication Instructions Recorded Confirmed Type aspirin 81 mg chewable tablet 81 mg PO QAM tab 04/23/21 11/05/21 History atorvastatin 80 mg tablet 80 mg PO QPM 04/23/21 11/05/21 History clopidogrel 75 mg tablet 75 mg PO QAM tab 04/23/21 11/05/21 History metoprolol tartrate 25 mg tablet 25 mg PO BID 04/23/21 11/05/21 History pantoprazole 40 mg tablet,delayed 40 mg PO QPM tab 04/23/21 11/05/21 History release lisinopril 5 mg tablet 5 mg PO QPM 10/30/21 11/05/21 History metformin 750 mg tablet,extended 750 mg PO BID 10/30/21 11/05/21 History release 24 hr Patient History Medical History Barretts esophagus Gets routine EGDs- stable per patient Cardiomyopathy Resolved per cardio records EF 50-55% per 06/2021 ECHO Coronary artery disease CABG x3 03/21/2021: Renner to LAD, saphenous vein graft to diagonal, saphenous vein graft to PDA Diabetes type 2, uncontrolled Glucose stable per patient - improved recently- fasting glucose usually below 150 GERD (gastroesophageal reflux disease) Well controlled and stable Hyperlipidemia Hypertension NSTEMI (non-ST elevated myocardial infarction) (~03/19/21) Had heart cath @ [facility] no stents--sent to [facility] for CABG x3 (03/21/21)---follows with Dr. Arenas On anticoagulant therapy Plavix daily Surgical History History of cardiac cath (~03/19/21) for NSTEMI @ [facility]- had subsequent CABG History of colonoscopy History of coronary artery bypass graft x 3 (~03/21/21) @ [facility] History of esophagogastroduodenoscopy (EGD) History of open reduction and internal fixation (ORIF) procedure left foot--hardware in place History of tooth extraction Family History Other No family history of adverse response to anesthesia Social History Smoking Status: Never smoker Second Hand Exposure: No; Do You Dip or Chew Tobacco: No; Tobacco Cessation Education Requested by Patient: No Hx Alcohol Use: Yes Alcohol type: hard liquor Hx Substance Use: No Preferred Language: Bulgarian Communication Ability: Effective Tool And Die Maker Required: No Beliefs That Will Affect Care: None Current Living Situation: Spouse current occupational status: employed current occupation: [employer] Other Information That Helps Us Care for You: No Feels Safe at Home: Yes Safety Concerns: Feels Safe At This Time Assistive Devices: None Review of Systems Review of Systems: -- Recurrent amaurosis fugax of the right eye. -- 10 point ROS completed and is negative with the exception of what is mentioned in the HPI. Physical Exam Physical Exam: GENERAL: Patient in no acute distress. HEENT: Head is atraumatic, normocephalic. EOM's intact. Right pupil with sluggish reaction. Facies otherwise symmetric. No perioral cyanosis. NECK: No JVD. JVP is not elevated. Left carotid upstrokes is + 2. No bruits are noted. Right anterolateral neck is dressed and was not manipulated. CHEST/LUNGS: Clear to auscultation throughout all lung quispe. No wheezes, rales, or crackles. CVS: S1 and S2 are regular without obvious murmurs, gallops, or rubs. PMI is nondisplaced. No lifts, heaves, or thrills. No abdominal aortic or renal bruits. ABDOMINAL EXAM: Bowel sounds are present. No masses, organomegaly, or tenderness. EXTREMITIES: No clubbing or cyanosis. No edema. Intact posterior tibial and radial pulses bilaterally. NEUROLOGIC EXAM: Patient is awake, alert, and oriented. Pleasant and cooperative. Answers questions appropriately. Speech is clear. FOIL SPINNER shows NSR in the 70's currently in the PACU. Rhythm Strip 11/05/21 at 8:21:11 a.m. shows sinus bradycardia transitioning into a junctional bradycardia at 40 bpm. Results & Data ([facility]) Vital Signs (Past 12 Hours) Vital Signs Temp Pulse Resp BP BP Pulse Ox 11/05/21 09:35 70 12 135/78 100 11/05/21 09:25 36.3 C L 71 12 134/79 100 11/05/21 09:15 73 12 139/78 100 11/05/21 09:05 78 18 147/83 H 98 11/05/21 08:57 36.1 C L 87 20 146/84 H 99 11/05/21 06:15 37 C 56 L 18 140/79 139/75 100 Laboratory Results Laboratory Results - last 24 hr 11/05/21 11/05/21 11/05/21 06:07 06:37 09:07 POC Glucose 152 H 171 H SARS-CoV-2, RNA, NAAT NEGATIVE Diagnostic Findings CTA NECK 11/03/21: A 3 vessel aortic arch is shown. There is no significant atherosclerotic plaque in the aortic arch or the origins of the innominate, left common carotid, and left subclavian arteries. Atherosclerosis is seen bilaterally. No hemodynamically significant stenosis is seen on the left. On the right, there is near complete occlusion of the internal carotid artery just past the bifurcation. The right vertebral artery is dominant. IMPRESSION: -- Severe stenosis of the right internal carotid just past the bifurcation. -- Atherosclerotic disease is seen bilaterally. Medications Administered Medications aspirin 81 mg chewable tablet 81 mg PO QAM tab 04/23/21 [History Confirmed 11/05/21] atorvastatin 80 mg tablet 80 mg PO QPM 04/23/21 [History Confirmed 11/05/21] clopidogrel 75 mg tablet 75 mg PO QAM tab 04/23/21 [History Confirmed 11/05/21] metoprolol tartrate 25 mg tablet 25 mg PO BID 04/23/21 [History Confirmed 11/05/21] pantoprazole 40 mg tablet,delayed release 40 mg PO QPM tab 04/23/21 [History Confirmed 11/05/21] lisinopril 5 mg tablet 5 mg PO QPM 10/30/21 [History Confirmed 11/05/21] metformin 750 mg tablet,extended release 24 hr 750 mg PO BID 10/30/21 [History Confirmed 11/05/21] Home Medications Atropine Sulfate (Atropine Sulfate 0.1 Mg/Ml 10ml Syr) 0.5 mg IV Q1M PRN PRN Reason: PACU Use-HR<40 &/or Bradycardi Stop: 11/05/21 14:49 Ephedrine Sulfate (Ephedrine Sulfate 50 Mg/Ml Amp) 5 mg IV Q5M PRN PRN Reason: PACU Use Only-SBP<90 mmHg Stop: 11/05/21 14:49 Fentanyl Citrate (Fentanyl Citrate 100 Mcg/2 Ml Vial) 50 mcg IV Q5M PRN PRN Reason: PACU Use Only-Pain Stop: 11/05/21 14:49 Hydromorphone HCl (Hydromorphone Inj 2 Mg/Ml Syr/Vial) 0.5 mg IV Q5M PRN PRN Reason: PACU Use Only-Pain Stop: 11/05/21 14:49 Lactated Ringer's (Lr) 1,000 mls @ 15 mls/hr IV .Q24H JASMIN Stop: 12/05/21 07:14 Last Infusion: 11/05/21 07:40 Dose: Infused Documented by: Ondansetron HCl (Ondansetron Inj 2 Mg/Ml 2 Ml Vial) 4 mg IV ONCE PRN PRN Reason: PACU Use Only-Nausea/Vomiting Stop: 11/05/21 14:49 PG Care Time/CCT Total # of Minutes Spent Total Time Spent with Patient: Total time spent is greater than 50% in coordination of care (as documented) at patient's floor/unit and/or counseling patient:38 Coding Level of Care Code 55752 Inpt Consult Level 4 Diagnoses Junctional bradycardia R00.1 Coronary artery disease I25.10 Dyslipidemia E78.5 Hypertension I10 Hypertension type: unspecified Time Spent (min) 56 (1) Hypertension Hypertension type: unspecified Qualified Code(s): I10 - Essential (primary) hypertension
--- NOTE | 2021-11-05 10:02 | Anesthesiology Progress Note ---
Date of Service November 05, 2021 Anesthesia Post Procedure Vital Signs Vital Signs: Temp Pulse Resp BP BP Pulse Ox 11/05/21 09:45 68 12 138/79 99 11/05/21 09:35 70 12 135/78 100 11/05/21 09:25 36.3 C L 71 12 134/79 100 11/05/21 09:15 73 12 139/78 100 11/05/21 09:05 78 18 147/83 H 98 11/05/21 08:57 36.1 C L 87 20 146/84 H 99 11/05/21 06:15 37 C 56 L 18 140/79 139/75 100 Pain Intensity Right Neck: Pain Intensity: 3 Transfer of Care Handoff Completed per policy Notes Mental Status: alert / awake / arousable and participated in evaluation Patient Amnestic to Procedure: Yes Nausea / Vomiting: adequately controlled Pain: adequately controlled Airway Patency, RR, SpO2: stable & adequate BP & HR: stable & adequate Hydration State: stable & adequate Anesthetic Complications: Pt Satisfied with anesthetic care Notes: on incision, pt became hypertensive to [id number]. Pt then became bradycardic into the low 30s. BP began to decrease. Junctional rhythm seen by vascular surgeon. DIRECTOR AND PROFESSOR gave 300 mcg of atropine and 10 mg ephedrine and 0.2 Robinal. I arrived and BP was SB at 41. SBP>120. Vascular decided to stop the case. pt was extubated. pt was moving all four limbs and responding appropriately
[2021-11-05] MEDS ORDERED: SODIUM CHLORIDE 0.9% 1000ML 1,000 ML IV SCH (11:01)
[2021-11-05] MEDS ORDERED: NON-FORMULARY MEDICATION (Metformin 750 mg Tablet Extended Release 24 Hr) PO SCH (11:01)
[2021-11-05] MEDS ORDERED: ICU PROTOCOL FOR HYPERGLYCEMIA PRN (11:01)
[2021-11-05] MEDS: ASPIRIN 81 MG CHEW PO SCH (11:45)
[2021-11-05] MEDS: CLOPIDOGREL BISULFATE 75 MG TAB PO SCH (11:46)
[2021-11-05] MEDS: METOPROLOL TARTRATE 25 MG TAB PO SCH ×2 (11:46→20:13)
[2021-11-05] MEDS ORDERED: PHARMACY GLYCEMIC MGMT CONSULT PRN (13:11)
[2021-11-05] MEDS ORDERED: CARBOHYDRATES FOR HYPOGLYCEMIA PO PRN (14:15)
[2021-11-05] MEDS ORDERED: GLUCOSE 40% GEL 15 GM TUBE PO PRN (14:15)
[2021-11-05] MEDS ORDERED: GLUCOSE 10 TABS/TUBE PO PRN (14:15)
[2021-11-05] MEDS ORDERED: GLUCAGON FOR INJ 1 MG VIAL IM PRN (14:15)
[2021-11-05] MEDS ORDERED: DEXTROSE 50% 50 ML SYRINGE IV PRN (14:15)
--- NOTE | 2021-11-05 14:52 | Critical Care Consultation ---
Date of Consultation November 05, 2021 Assessment & Plan (1) Junctional bradycardia: The surgical incision appears clean dry and intact. He is hemodynamically stable without any significant bradycardia at present. Will defer to cardiology and vascular surgery for clearance regarding future interventions on his carotid artery stenosis. Continue antihypertensives. Will monitor in the ICU overnight. History of Present Illness Reason for Consultation: Bradycardia Attending Physician: Jeff Perera MD History of Present Illness 66-year-old male with a past medical history of coronary artery disease status post CABG in 2020 who presented to the hospital today for right carotid endarterectomy. During the surgery he developed a junctional bradycardic rhythm and received atropine and ephedrine. He has remained hemodynamically stable in the ICU. He is without complaint currently. He was evaluated by cardiology. He is chronically on Lopressor 25 mg twice daily with. BMP was checked and potassium was 4.7. Calcium 8.8. EKG completed this afternoon revealed lateral nonspecific T wave abnormalities. He denies any complaint at present. He is accompanied by his . He is currently laying in the ICU bed. Art line is in place. Heart rate in the 60s. Allergies Allergy/AdvReac Type Severity Reaction Status Date / Time acetaminophen AdvReac Intermediate Congested Verified 11/05/21 06:20 ~ scratchy throat bee venom protein (honey bee) AdvReac Intermediate swelling Verified 11/05/21 06:21 at site of sting Home Medications Medication Instructions Recorded Confirmed Type aspirin 81 mg chewable tablet 81 mg PO QAM tab 04/23/21 11/05/21 History atorvastatin 80 mg tablet 80 mg PO QPM 04/23/21 11/05/21 History clopidogrel 75 mg tablet 75 mg PO QAM tab 04/23/21 11/05/21 History metoprolol tartrate 25 mg tablet 25 mg PO BID 04/23/21 11/05/21 History pantoprazole 40 mg tablet,delayed 40 mg PO QPM tab 04/23/21 11/05/21 History release lisinopril 5 mg tablet 5 mg PO QPM 10/30/21 11/05/21 History metformin 750 mg tablet,extended 750 mg PO BID 10/30/21 11/05/21 History release 24 hr Patient History Medical History Barretts esophagus Gets routine EGDs- stable per patient Cardiomyopathy Resolved per cardio records EF 50-55% per 06/2021 ECHO Coronary artery disease CABG x3 03/21/2021: Barreto to LAD, saphenous vein graft to diagonal, saphenous vein graft to PDA Diabetes type 2, uncontrolled Glucose stable per patient - improved recently- fasting glucose usually below 150 GERD (gastroesophageal reflux disease) Well controlled and stable Hyperlipidemia Hypertension NSTEMI (non-ST elevated myocardial infarction) (~03/19/21) Had heart cath @ [facility] no stents--sent to [facility] for CABG x3 (03/21/21)---follows with Dr. Arenas On anticoagulant therapy Plavix daily Surgical History History of cardiac cath (~03/19/21) for NSTEMI @ [facility]- had subsequent CABG History of colonoscopy History of coronary artery bypass graft x 3 (~03/21/21) @ [facility] History of esophagogastroduodenoscopy (EGD) History of open reduction and internal fixation (ORIF) procedure left foot--hardware in place History of tooth extraction Family History Other No family history of adverse response to anesthesia Social History Smoking Status: Never smoker Second Hand Exposure: No; Do You Dip or Chew Tobacco: No; Tobacco Cessation Education Requested by Patient: No Hx Alcohol Use: Yes Alcohol type: beer Hx Substance Use: No Preferred Language: Slovak Communication Ability: Effective Postie Required: No Beliefs That Will Affect Care: None Current Living Situation: Spouse current occupational status: employed current occupation: [employer] Other Information That Helps Us Care for You: No Feels Safe at Home: Yes Safety Concerns: Feels Safe At This Time Assistive Devices: None Review of Systems Review of Systems: All systems reviewed & are unremarkable except as noted in HPI & below Physical Exam Constitutional: WD/WN, vitals as above Eyes: PERRL, conjunctivae normal, anicteric sclerae ENMT: external ear and nose normal, oropharynx normal Respiratory: normal respiratory effort, lungs clear to auscultation Gastrointestinal (Abdomen): normal bowel sounds, soft, nontender, no hepatosplenomegaly Musculoskeletal: no cyanosis or clubbing, extremities motor strength 5/5 Skin: no rashes, warm and dry Neurologic: PERRL, EOMI, accommodation nl, no face palsy, no dysarthria Psychiatric: A+Ox3, euthymic affect Results & Data Results & Data ([facility]) Vital Signs (Past 12 Hours) Vital Signs Temp Pulse Pulse Resp BP BP BP 11/05/21 12:00 37.1 C 11/05/21 11:20 63 8 L 11/05/21 11:10 63 11 L 11/05/21 11:01 37.1 C 62 11/05/21 11:00 37.1 C 70 62 16 149/93 H 146/58 H 146/58 H 11/05/21 10:55 61 7 L 11/05/21 10:25 36.4 C L 64 10 L 140/77 11/05/21 10:15 36.4 C L 63 13 129/73 11/05/21 10:05 66 12 136/76 11/05/21 09:55 67 12 135/76 11/05/21 09:45 68 12 138/79 11/05/21 09:35 70 12 135/78 11/05/21 09:25 36.3 C L 71 12 134/79 11/05/21 09:15 73 12 139/78 11/05/21 09:05 78 18 147/83 H 11/05/21 08:57 36.1 C L 87 20 146/84 H 11/05/21 06:15 37 C 56 L 18 140/79 BP Pulse Ox 11/05/21 12:00 11/05/21 11:20 100 11/05/21 11:10 96 11/05/21 11:01 11/05/21 11:00 149/93 H 99 11/05/21 10:55 100 11/05/21 10:25 99 11/05/21 10:15 99 11/05/21 10:05 99 11/05/21 09:55 99 11/05/21 09:45 99 11/05/21 09:35 100 11/05/21 09:25 100 11/05/21 09:15 100 11/05/21 09:05 98 11/05/21 08:57 99 11/05/21 06:15 139/75 100 Coding Level of Care Code 09780 Inpt Consult Level 2 Diagnoses Junctional bradycardia R00.1
[2021-11-05] MEDS: INSULIN ASPART PER UNIT SC SCH ×2 (16:51→20:17)
[2021-11-05] MEDS ORDERED: ATORVASTATIN 40 MG TAB PO SCH (21:00)
[2021-11-05] MEDS ORDERED: lisinopril 5 MG TAB PO SCH (21:00)
[2021-11-05] MEDS ORDERED: PANTOprazole 40 MG TAB PO SCH (21:00)
[2021-11-06] MEDS: INSULIN ASPART PER UNIT SC SCH ×4 (00:10→11:52)
[2021-11-06] MEDS: CLOPIDOGREL BISULFATE 75 MG TAB PO SCH (08:10)
[2021-11-06] MEDS: METOPROLOL TARTRATE 25 MG TAB PO SCH (08:10)
[2021-11-06] MEDS: ASPIRIN 81 MG CHEW PO SCH (08:10)
[2021-11-06] MEDS: LACTATED RINGER'S 1,000 ML IV SCH (08:11)
--- NOTE | 2021-11-06 08:59 | Critical Care Progress Note ---
Date of Service November 06, 2021 Assessment & Plan (1) Junctional bradycardia: Plan: The surgical incision appears clean dry and intact. He is hemodynamically stable without any significant bradycardia at present. Will defer to cardiology and vascular surgery for clearance regarding future interventions on his carotid artery stenosis. Continue antihypertensives. It appears that the patient will be discharged by the vascular surgery team today. Admission and Anticipated Discharge Date Admission Date: November 05, 2021 Subjective Patient denies any complaint aside for some mild neck soreness. Denies palpitations or chest pain. Review of Systems Review of Systems: All systems reviewed & are unremarkable except as noted in HPI & below Physical Exam Constitutional: WD/WN, vitals as above Eyes: PERRL, conjunctivae normal, anicteric sclerae ENMT: external ear and nose normal, oropharynx normal Respiratory: normal respiratory effort, lungs clear to auscultation Gastrointestinal (Abdomen): normal bowel sounds, soft, nontender, no hepatosplenomegaly Musculoskeletal: no cyanosis or clubbing, extremities motor strength 5/5 Skin: no rashes, warm and dry Neurologic: PERRL, EOMI, accommodation nl, no face palsy, no dysarthria Psychiatric: A+Ox3, euthymic affect Results & Data Results & Data ([facility]) Vital Signs (Past 12 Hours) Vital Signs Temp Pulse Resp BP Pulse Ox 11/06/21 08:32 62 18 170/97 H 97 11/06/21 08:00 67 12 163/95 H 95 11/06/21 07:00 53 L 13 149/86 H 96 11/06/21 06:01 47 L 20 156/82 H 96 11/06/21 06:00 56 L 18 95 11/06/21 05:00 56 L 15 160/84 H 97 11/06/21 04:15 36.5 C 11/06/21 04:00 54 L 15 154/85 H 94 11/06/21 03:00 50 L 20 133/79 95 11/06/21 02:00 44 L 13 97 11/06/21 01:27 50 L 16 144/84 H 97 11/06/21 01:00 36.7 C 55 L 8 L 172/87 H 96 11/06/21 00:06 62 22 147/88 H 94 11/06/21 00:00 97 11/05/21 23:08 56 L 11/05/21 23:00 52 L 14 152/82 H 95 11/05/21 22:50 60 6 L 97 11/05/21 22:40 66 17 98 11/05/21 22:30 52 L 14 94 11/05/21 22:20 60 7 L 97 11/05/21 22:10 51 L 15 96 11/05/21 22:00 54 L 9 L 137/85 97 11/05/21 21:50 65 10 L 95 11/05/21 21:40 74 17 93 11/05/21 21:30 53 L 16 96 11/05/21 21:20 58 L 18 94 11/05/21 21:10 58 L 12 97 11/05/21 21:00 61 12 147/84 H 97 Coding Level of Care Code 19491 Subseq Hosp Care Lvl 1 Diagnoses Junctional bradycardia R00.1
--- NOTE | 2021-11-06 13:26 | Surgery Progress Note ---
Date of Service November 06, 2021 Assessment & Plan (1) Junctional bradycardia: Plan: Cardiology recommended a monitor for one month. Patient to f/u with his technical fellow for this (2) Stenosis of right internal carotid artery: Plan: will D/C today and will reschedule for CEA in two weeks. Admission and Anticipated Discharge Date Admission Date: November 05, 2021 Subjective No complaints Physical Exam Constitutional: WD/WN, vitals as above Respiratory: normal respiratory effort; no respiratory distress Cardiovascular: RRR, no murmur, no edema Rate/Rhythm: regular rate and regular rhythm Musculoskeletal: no cyanosis or clubbing, extremities motor strength 5/5 Neurologic: CN's II-XI intact bilaterally and moves all extremities Psychiatric: Orientation: alert and oriented x 3 Results & Data ([facility]) Vital Signs (Past 12 Hours) Vital Signs Temp Pulse Resp BP Pulse Ox 11/06/21 08:32 62 18 170/97 H 97 11/06/21 08:00 67 12 163/95 H 95 11/06/21 07:00 53 L 13 149/86 H 96 11/06/21 06:01 47 L 20 156/82 H 96 11/06/21 06:00 56 L 18 95 11/06/21 05:00 56 L 15 160/84 H 97 11/06/21 04:15 36.5 C 11/06/21 04:00 54 L 15 154/85 H 94 11/06/21 03:00 50 L 20 133/79 95 11/06/21 02:00 44 L 13 97 11/06/21 01:27 50 L 16 144/84 H 97
--- NOTE | 2021-11-06 22:09 | Electrocardiogram Report ---
Test Reason : Blood Pressure : / mmHG Vent. Rate : 053 BPM Atrial Rate : 053 BPM P-R Int : 176 ms QRS Dur : 092 ms QT Int : 484 ms P-R-T Axes : 039 004 050 degrees QTc Int : 454 ms Sinus bradycardia Otherwise normal ECG When compared with ECG of 03-NOV-2021 10:13, Criteria for Septal infarct are no longer Present Criteria for Lateral infarct are no longer Present Confirmed by Zechariah Diaz ([id number]) on 11/06/2021 10:08:43 PM Referred By: Jeff Perera Confirmed By:Zechariah Diaz
--- NOTE | 2021-11-11 09:28 | Discharge Summary ---
Date of Service November 11, 2021 Admission HPI Per Admitting Provider October 30, 2021 Name: FRANCESCA SLADE Patient Number: [id number] : 1955 Date of Service: 10/30/2021 Dear ,, I had the pleasure today of meeting Mr. Slade at [facility] [address] vascular surgery clinic with Dr. Perera. As you are aware, he is a very pleasant 66 years old male with significant past medical history of hypertension, diabetes and coronary artery disease. He has been having intermittent visual changes over the last 3 months. He described it as intermittent vision loss affecting only the right eye. It got worse with time and today he got evaluated by ophthalmology. This was initially attributed to diabetes however, a duplex ultrasound of the carotid artery demonstrated significant stenosis. He denies weakness or numbness, he does not have a slurred speech. his symptoms are isolated for right amaurosis fugax. He is functionally independent in ambulates without difficulty. He does not have claudication or rest pain. He is able to climb a flight of stairs without difficulty. He sleeps on 2 small pillows but he does not have shortness of breath. Of note, Mr. Slade underwent emergent CABG back in March from which he recovered with no complications. He was kept on aspirin and Plavix since the procedure. REVIEW OF SYSTEMS: 14 point ROS was performed, pertinent positive and negative aspects were mentioned in the HPI PAST MEDICAL HISTORY: Hypertension, GERD, type 2 diabetes, history of esophageal stricture, CAD status post CABG March 2021. PAST SURGICAL HISTORY: CABG March 2021, serial dilation for Bass's esophagus. SOCIAL HISTORY: Never smoker, functionally independent FAMILY HISTORY: Noncontributory MEDICATIONS: Pantoprazole 40 mg daily, atorvastatin 80 mg daily, metoprolol tartrate 25 mg twice daily, Plavix 75 mg daily, aspirin 81 mg daily, lisinopril 5 mg daily, metformin 750 mg ALLERGIES: Acetaminophen, bee sting PHYSICAL EXAM: VITALS: BP 164/86 on the left, 166/80 on the right, heart rate 64, satting 98% on room air GENERAL: Sitting comfortably in chair no acute distress CARDS: Regular PULM: Nonlabored breathing on room air ABDOMEN: Soft EXTREMITIES: Warm, well-perfused. Palpable pedal and radial pulses NEURO: Grossly intact cranial nerves II through XII. Intact motor and sensory function. IMAGING: Right ICA with peak systolic velocity of 451, end-diastolic 238, ICA to CCA ratio 8.8 indicating 80 to 99% stenosis of the right ICA. No hemostatic dynamically significant stenosis of the left ICA. Antegrade flow in bilateral vert.. ASSESSMENT AND PLAN: In summary, Mr. Slade is a very pleasant 66-year-old male with is symptomatic severe right carotid artery stenosis. We counseled him regarding the signs and symptoms of stroke and advised him to call 911 immediately should he develop those symptoms. He is consented to undergo right carotid endarterectomy next week. He may continue his aspirin and Plavix as indicated throughout the surgery. His grandson is graduating [facility] in [place] on Wednesday and he requested his surgery to be afterwards. We will discuss that with our schedulers. Thank you for entrusting us with the care of this patient. Please do not hesitate to call us with questions or concerns. I saw and evaluated the patient. Discussed with the resident and agree with the resident's findings and plan as documented in the resident's note. Signature Line Electronic Signature on File CC: Cuauhtemoc Arenas MD [facility] [place] [id number] * CC: Shraddha Rhodes DO [address] [place] [id number] CC: Wilfred Weber MD [address] [place] [address] Nikkie Seals MD Author Signature Dt/Tm: 10/30/2021 01:00 PM Resident Division of Vascular Surgery Electronically Reviewed/Signed by: Jeff Perera MD Cosigner Signature Dt/Tm: 11/03/2021 12:03 PM Curator Of Manuscripts Pan Gaitan [facility] [place] [place] [address] BN Result Type: .Outpt Ltr Date of Service: October 30, 2021 12:48 EDT Authorization Status: Final Author or Import Date: MD Seals Besma on October 30, 2021 12:51 EDT Verified By: MD Dilma, Jeff Fletcher on November 03, 2021 12:03 EDT Encounter info: [id number], [place] [id number], Clinic, 10/30/2021 - 10/30/2021 Admission Exam Per Admitting Provider VITALS: BP 164/86 on the left, 166/80 on the right, heart rate 64, satting 98% on room air GENERAL: Sitting comfortably in chair no acute distress CARDS: Regular PULM: Nonlabored breathing on room air ABDOMEN: Soft EXTREMITIES: Warm, well-perfused. Palpable pedal and radial pulses NEURO: Grossly intact cranial nerves II through XII. Intact motor and sensory function. IMAGING: Right ICA with peak systolic velocity of 451, end-diastolic 238, ICA to CCA ratio 8.8 indicating 80 to 99% stenosis of the right ICA. No hemostatic dynamically significant stenosis of the left ICA. Antegrade flow in bilateral vert.. Principal Diagnosis 1. Junctional Bradycardia 2. s/p attempted R CEA 3. Severe symptomatic R ICA stenosis Discharge Exam Constitutional WD/WN, vitals as above Respiratory normal respiratory effort; no respiratory distress Cardiovascular RRR, no murmur, no edema Rate/Rhythm: regular rate and regular rhythm Musculoskeletal no cyanosis or clubbing, extremities motor strength 5/5 Neurologic CN's II-XI intact bilaterally and moves all extremities Psychiatric Orientation: alert and oriented x 3 Discharge Data Allergies Allergy/AdvReac Type Severity Reaction Status Date / Time acetaminophen AdvReac Intermediate Congested Verified 11/05/21 06:20 ~ scratchy throat bee venom protein (honey bee) AdvReac Intermediate swelling Verified 11/05/21 06:21 at site of sting Consultations 11/05/21 11:01 Consult Cardiology Routine 11/05/21 13:08 Consult Ink Maker Routine Procedures Performed Operation Date: 11/05/21 07:30 Actual Procedures p Attempted Right Carotid Endarterectomy(Right) - Jeff Perera MD Hospital Course (1) Junctional bradycardia: Pt attempted R CEA was aborted immediately after incision d/t junctional bradycardia and pt was admitted for eval. Cardiology recommended a monitor for one month. Patient to f/u with his senior cytotechnologist for this. Cardiology has cleared pt for R CEA whenever rescheduled. (2) Stenosis of right internal carotid artery: will D/C today and will reschedule for CEA in two weeks. Total Time Total Time Spent Total Time Spent (In Minutes): 0 Discharge Plan Discharge Items Patient Disposition: Home - Self-Care Reason For Visit: Right Internal Cartodi Artery Stenosis Discharge Diagnosis: Right internal carotid artery stenosis Activity: Resume your previous activity Non-emergency contact: Surgeon Call non-emergency contact if: your temperature is above 101.5, your wound has increased redness, your wound has increased drainage and your wound pain has increased Follow-up/Referrals: Wilfred Weber MD [Primary Care Provider] - 11/13/21 9:50 am Diet: Heart Healthy Addtl Attending Provider Instructions: ACTIVITY RECOMMENDATIONS: no restrictions SPECIAL CARE INSTRUCTIONS: Call your doctor if: * Temperature above 101 degrees * Pain not relieved by pain medicine ordered * There is increased drainage or redness from any incision * You have any unanswered questions or concerns. Pending Studies at Discharge: No Stand-Alone Forms: My [facility] [employer], Smoking Cessation Medications and DC Order Prescriptions: New oxycodone-acetaminophen [Percocet] 5-325 mg tablet 1 tab PO Q8H PRN (Reason: pain) Qty: 7 RF: 0 Continued aspirin 81 mg tablet,chewable 81 mg PO QAM RF: 0 clopidogrel 75 mg tablet 75 mg PO QAM RF: 0 metoprolol tartrate 25 mg tablet 25 mg PO BID RF: 0 pantoprazole 40 mg tablet,delayed release (DR/EC) 40 mg PO QPM RF: 0 atorvastatin 80 mg tablet 80 mg PO QPM RF: 0 metformin 750 mg Tablet Extended Release 24 Hr 750 mg PO BID RF: 0 lisinopril 5 mg Tablet 5 mg PO QPM RF: 0 Discharge Orders: Discharge Order (Routine); Ordered 11/06/21 Ordered By: Jeff Perera Admission Data Admit Date/Time: 11/05/21 07:08 Attending Provider: Jeff Perera Admit Provider: Jeff Perera Primary Care Provider: Wilfred Weber Other Providers: Wilfred Rousseau ; José Antonio Amaya Other Interventions: Discharge Summary Assessment (RN) Last Done: 11/06/21 13:33
== END 2021-11-06 13:50 | disposition home or self-care (01) | DRG 983 ==
LOC: ASU 05:55 → 1E 07:08

== ENCOUNTER 2021-11-20 10:52 | Inpatient (IN) ==
--- NOTE | 2021-11-14 16:28 | Anesthesiology Consultation ---
Date of Service November 14, 2021 Assessment & Plan (1) Encounter for pre-operative examination: - check BSG am DOS. - attempted R CEA 11/05/21 MN: patient developed a Junctional Bradycardia with heart rates in the 30's and 40's. Surgeon did not feel comfortable proceeding with the surgery, so the surgery was stopped. Pt was transferred to ICU and cardiology evaluated patient. - cardiology consultation 11/05/21 MN: "...Hypertension, Dyslipidemia, Type 2 Diabetes Mellitus, Resolved Cardiomyopathy (LVEF 50% to 55%), Multivessel CAD s/p NSTEMI 03/18/21 s/p CABG x 3 Vessels 03/21/21 (RENNER to LAD, SVG to D2, SVG to PDA), and High Grade SHARONDA Stenosis who is here today for a Right Carotid Endarterectomy -- however, during the surgery the patient developed a Junctional Bradycardia with heart rates in the 30's and 40's...systolic blood pressure suddenly jumped up into the 180's and according to the senior technical recruiter the patient went from a NSR in the 70's to sinus bradycardia in the 40's and 50's followed by the development of a junctional bradycardia with heart rates in the 30's to 40's. WAGE CONCILIATOR administered Atropine and Ephedrine -- and shortly thereafter the patient's heart rate increased and he resumed a normal sinus rhythm...now in the PACU with stable vital signs, normal sinus rhythm, and his extremities are well perfused...most likely a reflexive bradycardia/junctional bradycardia secondary to carotid artery baroreceptor stimulation (spike in SBP, manual manipulation of carotid and overlying tissues)-- No further evaluation is necessary at this time-- Avoid excessive pressure/manipulation of either carotid artery-- Recommend proceeding with Right CEA when the surgeon and patient are able-- Keep Atropine and Ephedrine available for intra-operative use if this recurs..." - Dr. Perera's progress note 11/06/21: "...Junctional bradycardia: Cardiology recommended a monitor for one month. Patient to f/u with his experimental rocket sled mechanic for this. Stenosis of right internal carotid artery: will D/C today and will reschedule for CEA in two weeks..." - COVID screening: Per assessment services manager on 11/14/2021: Travel screen-returned from [facility] 10/25/21 and d/c summary dated 11/11/21 indicates patient request surgery to be after 11/18/21 given his grandson's graduation, no known COVID-19 positive contacts or current COVID-19 related symptoms in past 2 weeks. Attempts made to reach pt if he was planning travel/large group gathering-no answer. Pt returned call, states did not travel to graduation- denies travel. Pt vaccinated. Surgeon arranging preop COVID testing, scheduled 11/18/2021. Awaiting results. Chart Review Chart Review: Acceptable Risk for Surgery and Patient NOT seen in Pre Admission Testing History Surgery Operation Date: 11/20/21 12:30 Proposed Procedures p Right Carotid Endarterectomy - Jeff Perera MD Height/Weight Height: 5 ft 9 in Weight: 88.451 kg Allergies Allergy/AdvReac Type Severity Reaction Status Date / Time acetaminophen AdvReac Intermediate Congested Verified 11/05/21 06:20 ~ scratchy throat bee venom protein (honey bee) AdvReac Intermediate swelling Verified 11/05/21 06:21 at site of sting Medications Home Medications Medication Instructions Recorded Confirmed Last Taken aspirin 81 mg chewable tablet 81 mg PO QAM tab 04/23/21 11/14/21 11/05/21 04:30 atorvastatin 80 mg tablet 80 mg PO QPM 04/23/21 11/14/21 11/04/21 17:00 clopidogrel 75 mg tablet 75 mg PO QAM tab 04/23/21 11/14/21 11/05/21 04:30 pantoprazole 40 mg tablet,delayed 40 mg PO QPM tab 04/23/21 11/14/21 11/04/21 17:00 release lisinopril 5 mg tablet 5 mg PO QPM 10/30/21 11/14/21 11/04/21 17:00 metformin 750 mg tablet,extended 750 mg PO BID 10/30/21 11/14/21 11/04/21 08:00 release 24 hr oxycodone-acetaminophen 5 mg-325 1 tab PO Q8H PRN #7 tab 11/06/21 11/14/21 Unknown mg tablet (Percocet) metoprolol tartrate 25 mg tablet 12.5 mg PO BID tab 11/11/21 11/14/21 Unknown Past Medical History Medical History Barretts esophagus Gets routine EGDs- stable per patient Cardiomyopathy Resolved per cardio records EF 50-55% per 06/2021 ECHO Coronary artery disease CABG x3 03/21/2021: Renner to LAD, saphenous vein graft to diagonal, saphenous vein graft to PDA Diabetes type 2, uncontrolled Glucose stable per patient - improved recently- fasting glucose usually below 150 GERD (gastroesophageal reflux disease) Well controlled and stable Hyperlipidemia Hypertension Junctional bradycardia NSTEMI (non-ST elevated myocardial infarction) (~03/19/21) Had heart cath @ [facility] no stents--[place] [facility] [place]G [place]21)---follows with Dr. Arenas On anticoagulant therapy Plavix daily Past Family History Family History Other No family history of adverse response to anesthesia Past Surgical History Surgical History H/O carotid endarterectomy R CEA 11/05/21: Grade 1 view with glidescope #4 ETT 7.5. Per anesthesia progress note: on incision, pt became hypertensive to [id number]. Pt then became bradycardic into the low 30s. BP began to decrease. Junctional rhythm seen by vascular surgeon. WAGE CONCILIATOR gave 300 mcg of atropine and 10 mg ephedrine and 0.2 Robinal. I arrived and BP was SB at 41. SBP>120. Vascular decided to stop the case. pt was extubated. pt was moving all four limbs and responding appropriately. History of cardiac cath (~03/19/21) for NSTEMI @ [facility]- had subsequent CABG History of colonoscopy History of coronary artery bypass graft x 3 (~03/21/21[place] [facility] [place] of esophagogastroduodenoscopy (EGD) History of open reduction and internal fixation (ORIF) procedure left foot--hardware in place History of tooth extraction Social History Smoking Status: Never smoker Do You Dip or Chew Tobacco: No Hx Alcohol Use: Yes Alcohol type: hard liquor alcohol intake frequency: 0-2 drinks per day Hx Substance Use: No substance use type: does not use Lab Results Anesthesia Preop Results Results Anesthesia Widget: WBC 7.35 K/uL (4.8-10.8) 11/03/21 Hgb 12.9 g/dL (14.0-18.0) L 11/03/21 Hct 38.8 % (42-52) L 11/03/21 Plt 250 K/uL (130-400) 11/03/21 Na 138 mmol/L (136-145) 11/03/21 K 4.7 mmol/L (3.5-5.1) 11/03/21 Cl 104 mmol/L (98-107) 11/03/21 CO2 28 mmol/L (21-32) 11/03/21 BUN 20 mg/dl (6-23) 11/03/21 Creat 1.15 mg/dl (0.6-1.4) 11/03/21 Glucose Level 224 mg/dl (70-99(Fasting)) H 11/03/21 POC Glucose 169 mg/dl (70-99) H 11/06/21 PT 12.2 Seconds (9.0-12.0) H 11/03/21 PTT 27.6 Seconds (21.0-31.0) 11/03/21 INR 1.2 (0.9-1.1) H 11/03/21 HA1c 6.8 % (4.5-5.6) H 11/03/21 Blood Type A Positive 11/03/21 Antibody Screen NEGATIVE 11/03/21 Testing Electrocardiogram Date: 11/05/21 Sinus bradycardia, rate 53 bpm Chest X-Ray Date: 11/03/21 Frontal and lateral radiographs of the chest demonstrate the cardiomediastinal silhouette to be within normal limits. The patient is status post previous cardiothoracic surgery. The lungs are clear of alveolar opacities. There is no evidence for effusion bilaterally. There is no evidence for vascular congestion. There is no acute osseous pathology. IMPRESSION: 1. No acute cardiopulmonary disease. Echocardiogram Date: 07/02/21 EF: 50-55% LV Function: normal Other Findings: + diastolic dysfunction (Grade I ) Abnormal (paradoxical) septal motion consistent with post operative status. Left atrium is mildly dilated. Mild MR. Cardiac Catheterization Date: 03/19/21 LM= normal in size and caliber LAD= 70% stenosis at the origin of the second diagonal branch. 70% proximal stenosis of the second diagonal branch with distal disease as well. LCx= 40% stenosis in proximal portion. RCA= PDA had complex nearly subtotaled lesion in proximal portion (Pt was [place] [facility] [place] 3 [place] CABG on 03/21/21- Renner to LAD, saphenous vein graft to diagonal, saphenous vein graft to PDA) Other Testing Neck CTA 11/03/21=Severe stenosis of the right internal carotid just past the bifurcation (near complete occlusion of right ICA). Atherosclerotic disease is seen bilaterally. Assessment of stenosis of the internal carotid arteries is based on NASCET criteria. Cerebrovascular duplex 10/29/2021= 80-99% stenosis in the right internal carotid artery. No hemodynamically significant stenosis in the left internal carotid artery. Antegrade flow in bilateral vertebral arteries. Normal flow in the bilateral subclavian arteries.
--- NOTE | 2021-11-20 10:18 | History & Physical Report ---
Date of Service November 20, 2021 History of Present Illness Primary Care Provider: Wilfred Weber MD Date of Service November 05, 2021 History of Present Illness Primary Care Provider: Wilfred Weber MD October 30, 2021 Name: FRANCESCA SLADE Patient Number: [id number] : [id number] Date of Service: 10/30/2021 Dear ,, I had the pleasure today of meeting Mr. Slade at [facility] vascular surgery clinic with Dr. Perera. As you are aware, he is a very pleasant 66 years old male with significant past medical history of hypertension, diabetes and coronary artery disease. He has been having intermittent visual changes over the last 3 months. He described it as intermittent vision loss affecting only the right eye. It got worse with time and today he got evaluated by ophthalmology. This was initially attributed to diabetes however, a duplex ultrasound of the carotid artery demonstrated significant stenosis. He denies weakness or numbness, he does not have a slurred speech. his symptoms are isola jimmie for right amaurosis fugax. He is functionally independent in ambulates without difficulty. He does not have claudication or rest pain. He is able to climb a flight of stairs without difficulty. He sleeps on 2 small pillows but he does not have shortness of breath. Of note, Mr. Slade underwent emergent CABG back in March from which he recovered with no complications. He was kept on aspirin and Plavix since the procedure. REVIEW OF SYSTEMS: 14 point ROS was performed, pertinent positive and negative aspects were mentioned in the HPI PAST MEDICAL HISTORY: Hypertension, GERD, type 2 diabetes, history of esophageal stricture, CAD status post CABG March 2021. PAST SURGICAL HISTORY: CABG March 2021, serial dilation for Bass's esophagus. SOCIAL HISTORY: Never smoker, functionally independent FAMILY HISTORY: Noncontributory MEDICATIONS: Pantoprazole 40 mg daily, atorvastatin 80 mg daily, metoprolol tartrate 25 mg twice daily, Plavix 75 mg daily, aspirin 81 mg daily, lisinopril 5 mg daily, metformin 750 mg ALLERGIES: Acetaminophen, bee sting PHYSICAL EXAM: VITALS: BP 164/86 on the left, 166/80 on the right, heart rate 64, satting 98% on room air GENERAL: Sitting comfortably in chair no acute distress CARDS: Regular PULM: Nonlabored breathing on room air ABDOMEN: Soft EXTREMITIES: Warm, well-perfused. Palpable pedal and radial pulses NEURO: Grossly intact cranial nerves II through XII. Intact motor and sensory function. IMAGING: Right ICA with peak systolic velocity of 451, end-diastolic 238, ICA to CCA ratio 8.8 indicating 80 to 99% stenosis of the right ICA. No hemostatic dynamically significant stenosis of the left ICA. Antegrade flow in bilateral vert.. ASSESSMENT AND PLAN: In summary, Mr. Slade is a very pleasant 66-year-old male with is symptomatic severe right carotid artery stenosis. We counseled him regarding the signs and symptoms of stroke and advised him to call 911 immediately should he develop those symptoms. He is consented to undergo right carotid endarterectomy next week. He may continue his aspirin and Plavix as indicated throughout the surgery. His grandson is graduating college in [place] on Wednesday and he requested his surgery to be afterwards. We will discuss that with our schedulers. Thank you for entrusting us with the care of this patient. Please do not hesitate to call us with questions or concerns. I saw and evaluated the patient. Discussed with the resident and agree with the resident's findings and plan as documented in the resident's note. Signature Line Electronic Signature on File CC: Cuauhtemoc Arenas MD [address] [facility] [address] [facility] [id number] * CC: Shraddha Rhodes DO [address] [place] [address] [place] [id number] CC: Wilfred Weber MD [address] [place] [id number] Nikkie Seals MD Author Signature Dt/Tm: 10/30/2021 01:00 PM Resident Division of Vascular Surgery Electronically Reviewed/Signed by: MD Chris Post Signature Dt/Tm: 11/03/2021 12:03 PM Transformer Molder Pan Gaitan [facility] [place] [place] [address] BN Result Type: .Outpt Ltr Date of Service: October 30, 2021 12:48 EDT Authorization Status: Final Author or Import Date: MD Arnel, Nikkie on October 30, 2021 12:51 EDT Verified By: MD Dilma, Jeff Fletcher on November 03, 2021 12:03 EDT Encounter info: [id number], [facility], Clinic, 10/30/2021 - 10/30/2021 Allergies Allergy/AdvReac Type Severity Reaction Status Date / Time acetaminophen AdvReac Intermediate Congested Verified 11/05/21 06:20 B ~ scratchy throat bee venom protein (honey bee) AdvReac Intermediate swelling Verified 11/05/21 06:21 at site of sting Home Medications Medication Instructions Recorded Confirmed Type aspirin 81 mg chewable tablet 81 mg PO QAM tab 04/23/21 11/05/21 H istory atorvastatin 80 mg tablet 80 mg PO QPM 04/23/21 11/05/21 Histo ry clopidogrel 75 mg tablet 75 mg PO QAM tab 04/23/21 11/05/21 Histor y metoprolol tartrate 25 mg tablet 25 mg PO BID 04/23/21 2 History pantoprazole 40 mg tablet,delayed 40 mg PO QPM tab 04/23/21 History release lisinopril 5 mg tablet 5 mg PO QPM 10/30/21 11/05/21 History metformin 750 mg tablet,extended 750 mg PO BID 10/30/21 2 History release 24 hr Past Med/Surg History Medical History Barretts esophagus Gets routine EGDs- stable per patientCardiomyopathy Resolved per cardio records EF 50-55% per 06/2021 ECHOCoronary artery disease CABG x3 03/21/2021: Barreto to LAD, saphenous vein graft to diagonal, saphenous vein graft to PDADiabetes type 2, uncontrolled Glucose stable per patient - improved recently- fasting glucose usually below 150GERD (gastroesophageal reflux disease) Well controlled and stableHyperlipidemia Hypertension NSTEMI (non-ST elevated myocardial infarction) (~03/19/21) Had heart cath @ [facility] no stents--sent to [facility] for CABG x3 (03/21/21)---follows with Dr. Timmons anticoagulant therapy Plavix daily Surgical History History of cardiac cath (~03/19/21) for NSTEMI @ [facility]- had subsequent CABGHistory of colonoscopy History of coronary artery bypass graft x 3 (~03/21/21) [facility] ([facility]) History of open reduction and internal fixation (ORIF) procedure left foot--hardware in placeHistory of tooth extraction Family History Other No family history of adverse response to anesthesia Social History Smoking Status: Never smoker Second Hand Exposure: No; Do You Dip or Chew Tobacco: No; Tobacco Cessation Education Requested by Patient: No Hx Alcohol Use: Yes Alcohol type: hard liquor Hx Substance Use: No Preferred Language: Macedonian Communication Ability: Effective Pattern Developer Required: No Beliefs That Will Affect Care: None Current Living Situation: Spouse current occupational status: employed current occupation: [employer] Other Information That Helps Us Care for You: No Feels Safe at Home: Yes Safety Concerns: Feels Safe At This Time Assistive Devices: None Results & Data ([facility]) Vital Signs (Past 12 Hours) Vital Signs Temp Pulse Resp BP BP Pulse Ox 11/05/21 06:15 37 C 56 L 18 140/79 139/75 100 Signed By: <Electronically signed by Jeff Perera MD> 11/05/21 0707 Created:11/05/21 0707 The status of this report isSigned. Draft = Not yet reviewed or approved by Medical Physician. Signed = Reviewed and approved by Medical Physic Allergies Allergy/AdvReac Type Severity Reaction Status Date / Time acetaminophen AdvReac Intermediate Congested Verified 11/05/21 06:20 ~ scratchy throat bee venom protein (honey bee) AdvReac Intermediate swelling Verified 11/05/21 06:21 at site of sting Home Medications Medication Instructions Recorded Confirmed Type aspirin 81 mg chewable tablet 81 mg PO QAM tab 04/23/21 11/14/21 History atorvastatin 80 mg tablet 80 mg PO QPM 04/23/21 11/14/21 History clopidogrel 75 mg tablet 75 mg PO QAM tab 04/23/21 11/14/21 History pantoprazole 40 mg tablet,delayed 40 mg PO QPM tab 04/23/21 11/14/21 History release lisinopril 5 mg tablet 5 mg PO QPM 10/30/21 11/14/21 History metformin 750 mg tablet,extended 750 mg PO BID 10/30/21 11/14/21 History release 24 hr oxycodone-acetaminophen 5 mg-325 1 tab PO Q8H PRN #7 tab 11/06/21 11/14/21 Rx mg tablet (Percocet) metoprolol tartrate 25 mg tablet 12.5 mg PO BID tab 11/11/21 11/14/21 History Past Med/Surg History Medical History Barretts esophagus Gets routine EGDs- stable per patient Cardiomyopathy Resolved per cardio records EF 50-55% per 06/2021 ECHO Coronary artery disease CABG x3 03/21/2021: Barreto to LAD, saphenous vein graft to diagonal, saphenous vein graft to PDA Diabetes type 2, uncontrolled Glucose stable per patient - improved recently- fasting glucose usually below 150 GERD (gastroesophageal reflux disease) Well controlled and stable Hyperlipidemia Hypertension Junctional bradycardia NSTEMI (non-ST elevated myocardial infarction) (~03/19/21) Had heart cath @ [facility] no stents--sent to [facility] [place]G x3 (03/21/21)---follows with Dr. Arenas On anticoagulant therapy Plavix daily Surgical History H/O carotid endarterectomy R CEA 11/05/21: Grade 1 view with glidescope #4 ETT 7.5. Per anesthesia progress note: on incision, pt became hypertensive to [id number]. Pt then became bradycardic into the low 30s. BP began to decrease. Junctional rhythm seen by vascular surgeon. ELEMENTARY SCHOOL TUTOR gave 300 mcg of atropine and 10 mg ephedrine and 0.2 Robinal. I arrived and BP was SB at 41. SBP>120. Vascular decided to stop the case. pt was extubated. pt was moving all four limbs and responding appropriately. History of cardiac cath (~03/19/21) for NSTEMI @ [facility]- had subsequent CABG History of colonoscopy History of coronary artery bypass graft x 3 (~03/21/21) @ [facility] History of esophagogastroduodenoscopy (EGD) History of open reduction and internal fixation (ORIF) procedure left foot--hardware in place History of tooth extraction Family History Other No family history of adverse response to anesthesia Social History Smoking Status: Never smoker Second Hand Exposure: No; Hx Alcohol Use: Yes Alcohol type: hard liquor Hx Substance Use: No Preferred Language: Macedonian Communication Ability: Effective Pattern Developer Required: No Beliefs That Will Affect Care: None marital status: Current Living Situation: Spouse current occupational status: employed current occupation: [employer] mechanic Feels Safe at Home: Yes Assistive Devices: None
[~2021-11-20 10:52] MED LIST: SODIUM CHLORIDE 0.9% 1000ML IV SCH; ceFAZolin 2000MG 2,000 MG/15 ML SYR IV SCH
[2021-11-20] MEDS ORDERED: EPINEPHrine INJ 1 MG/ML AMP ONE (11:16)
[2021-11-20] MEDS ORDERED: HEPARIN (PORCINE) 1000 UNIT/ML 10 ML (CATH LAB USE ONLY) ONE (11:16)
[2021-11-20] MEDS ORDERED: ceFAZolin 330 MG/ML 1 GM VIAL ONE (11:17)
[2021-11-20] MEDS ORDERED: LIDOCAINE 1% LOCAL 20 ML VIAL ONE (11:17)
[2021-11-20] MEDS ORDERED: BUPIVACAINE/EPINEPHRINE 0.25% 1:200,000 30 ML VIAL ONE (11:17)
[2021-11-20] MEDS ORDERED: THROMBIN FOR SOLN 20000 UNIT KIT ONE (11:17)
[2021-11-20] MEDS ORDERED: BUPIVACAINE 0.5 % 5 MG/1 ML MPF 30ML VIAL ONE (11:17)
[2021-11-20] MEDS ORDERED: GELATIN SPONGE SZ 100 ONE ×2 (11:17→15:49)
[2021-11-20 11:47] LABS: BUN Creatinine Ratio 18.9 (10-20); Calcium 8.9 mg/dl (8.5-10.1); Creatinine Clr Calc Pharmacy 86.3 ml/min; Est GFR (African American) 97.7 ml/min; Est GFR (Non-African American) 84.3 ml/min; Potassium 3.5 mmol/L (3.5-5.1)
[2021-11-20] MEDS ORDERED: fentaNYL citrate 100 MCG/2 ML VIAL ONE ×3 (12:14→16:14)
[2021-11-20] MEDS ORDERED: LIDOCAINE 2% 2 ML VIAL/AMP(20MG/ML) INFIL ONE ×2 (12:14→13:29)
[2021-11-20] MEDS ORDERED: MIDAZOLAM HCL 1 MG/ML 2ML VIAL ONE (12:14)
[2021-11-20] MEDS ORDERED: ONDANSETRON INJ 2 MG/ML 2 ML VIAL ONE (12:14)
[2021-11-20] MEDS ORDERED: PROPOFOL IV EMULSION 10 MG/ML 20 ML VIAL IV ONE (12:14)
--- NOTE | 2021-11-20 12:27 | History & Physical Bridge Note ---
Date of Service November 20, 2021 History & Physical Bridge Note I have examined the patient, reviewed the History & Physical and in the interval since the performance of the History & Physical I have noted the following changes of clinical significance: no changes noted
[2021-11-20] MEDS ORDERED: GLYCOPYRROLATE 0.2 MG/ML VIAL ONE ×3 (13:17→16:48)
[2021-11-20] MEDS ORDERED: CISATRACURIUM BESYLATE IV SOLN 2 MG/ML 10 ML VIAL IV ONE (13:18)
[2021-11-20] MEDS ORDERED: SUCCINYLCHOLINE CHLORIDE 20 MG/ML 10 ML VIAL IV ONE (13:18)
[2021-11-20] MEDS ORDERED: NEOSTIGMINE METHYLSULFATE 1 MG/ML 10ML VIAL ONE (13:50)
[2021-11-20] MEDS ORDERED: HEPARIN SOD (PORCINE) 1000 UNIT/ML ONE (14:00)
[2021-11-20] MEDS ORDERED: NITROGLYCERIN 5 MG/ML 10 ML VIAL ONE (14:53)
[2021-11-20] MEDS ORDERED: PROTAMINE SULFATE 10 MG/ML 5 ML VIAL ONE (15:49)
[2021-11-20] MEDS ORDERED: THROMBIN FOR SOLN 20000 UNIT KIT TOP STA (15:57)
[2021-11-20] MEDS ORDERED: SURGICEL ABSORB HEMOSTAT 2IN X 14IN TOP ONE ×2 (15:58→16:21)
[2021-11-20] MEDS ORDERED: ROCURONIUM BROMIDE 10 MG/ML 5 ML VIAL IV ONE (16:21)
[2021-11-20] MEDS ORDERED: ePHEDrine sulfate 50 MG/ML SYR ONE ×2 (16:36)
--- NOTE | 2021-11-20 16:38 | Post Operative Brief Note ---
Immediate Post Op Note v1 Date of Surgery November 20, 2021 Pre & Post Diagnosis Operation Date: 11/20/21 12:30 Pre-Op Diagnosis: Right Internal Carotid Artery Stenosis Post-Op Diagnosis: Right Internal Carotid Artery Stenosis I identified the patient and participated in the time-out.: Yes Procedure Operation Date: 11/20/21 12:30 Actual Procedures p Right Carotid Endarterectomy with bovine patch(Right) - Jeff Perera MD Surgeon Jeff Perera MD Data Integrity Specialist MD Jaimee Estimated Blood Loss 150 Findings Consistent with Post-Op Diagnosis Anesthesia Type General Complications none Disposition Accompanied Patient To Recovery: No Disposition: Recovery Room
--- NOTE | 2021-11-20 17:10 | Operative Report ---
Post Operative Report Pre & Post Diagnosis Operation Date: 11/20/21 12:30 Pre-Op Diagnosis: Right Internal Carotid Artery Stenosis Post-Op Diagnosis: Right Internal Carotid Artery Stenosis I identified the patient and participated in the time-out.: Yes Procedure Operation Date: 11/20/21 12:30 Actual Procedures p Right Carotid Endarterectomy with patch(Right) - Jeff Perera MD Surgeon Jeff Perera MD Button Machine Operator MD Jaimee Estimated Blood Loss 150 Findings Consistent with Post-Op Diagnosis see operative report Specimens right carotid plaque Anesthesia Type General Complications none immediate Disposition Accompanied Patient To Recovery: No Disposition: Surgical ICU Indications This is a 66 year old male with symptomatic right carotid stenosis. He presents for right carotid endarterectomy. Description of Procedure The patient was taken to the operating room and placed in supine position. After general anesthesia was accomplished the right-side of the neck was prepped and draped in a sterile manner. A team timeout was performed. A longitudinal neck incision was then made coursing along the medial border of the sternocleidomastoid muscle, in the same location as the previous right carotid incision. The incision was taken down through the platysmal layer. The facial vein was identified, ligated, and divided. The common carotid artery was then seen. It was dissected free down to the omohyoid muscle. The dissection was carried upward until the external carotid artery and superior thyroid artery was seen. The superior thyroid artery was slung with a red rubber vessel loop.. The external carotid was slung with a red rubber vessel loop. Next the dissection was carried up along the internal carotid artery. This was carried upward to beyond the area of narrowing. The hypoglossal nerve was seen and preserved. The patient was heparinized. After adequate heparinization was ac complished, the internal, external, and common carotid arteries were clamped. A longitudinal arteriotomy was started on the common carotid artery and extended upward along the internal carotid artery to a point beyond the area of narrowing. There was calcified plaque of the internal carotid artery origin causing approximately 85-90% narrowing. There was a fair amount of hemorrhage within the plaque. An external Sundt shunt was then placed in the internal, followed by the common carotid artery and held in place with Malcom clamps. There was good back bleeding seen from the internal carotid artery. The endarterectomy was then started in the appropriate plane on the common carotid artery. This was carried upward and the external carotid was everted and endarterectomized. The endarterectomy was then carried up along the internal carotid artery till a nice feathering breakoff point was accomplished beyond the end of the plaque. The endarterectomy was then carried down further on the common carotid artery. At end of the arteriotomy, the plaque was then transected. The shelf of plaque where the plaque was transected was fixed down with interrupted 6-0 tacking sutures. Under loop magnification, all loose debris and flaps were removed. There was no distal flap seen at the end of the endarterectomy site. The arteriotomy then closed using a bovine carotid patch and a running 6-0 prolene suture. This was done in the usual vascular fashion. Prior to completing the closure, the shunt was removed and the internal and common carotid arteries were reclamped. Backbleeding and forward bleeding was allowed to occur. The flow surface was irrigated with heparinized saline. The final few sutures were then placed and securely tied. Clamps were then removed off the external and common carotid arteries. The clamp was then removed from the internal carotid artery. A good pulse was appreciated in the internal, common, and external carotid arteries. A few 7-0 prolene sutures were used for repair of bleeding along the patch, then adequate hemostasis was seen of the patch. There was diffuse oozing of blood from all tissue surfaces. Therefore the patient was given 15mg protamine. Manual pressure was held. Gel foam thrombin, surgicel, and cautery were used to improve hemostasis. This took greater than one hour, then the wound was inspected and adequate hemostasis was obtained. The wound was irrigated with antibiotic solution. It was then closed with a running 3-0 Vicryl suture for the platysmal layer and a 4-0 subcuticular Vicryl suture for the dermal edges. The skin was closed with casper. Dry gauze and primapore tape were used for dressings. The patient left the operating room in satisfactory condition and tolerated the procedure well. Dr. Perera was present and scrubbed for the entirety of the procedure. I attest to the content of the Intraoperative Record and any orders documented therein. Any exceptions are noted below.
[2021-11-20] MEDS ORDERED: fentaNYL citrate 100 MCG/2 ML VIAL IV PRN (17:26)
[2021-11-20] MEDS ORDERED: LABETALOL HCL IV 5 MG/ML 20ML IV PRN (17:26)
[2021-11-20] MEDS ORDERED: ATROPINE SULFATE 0.1 MG/ML 10ML SYR IV PRN (17:26)
[2021-11-20] MEDS ORDERED: NALOXONE HCL 0.4 MG/1 ML VIAL/CARP IV PRN (17:26)
[2021-11-20] MEDS ORDERED: ONDANSETRON INJ 2 MG/ML 2 ML VIAL IV PRN (17:26)
[2021-11-20] MEDS ORDERED: FLUMAZENIL 0.1 MG/1 ML 10 ML VIAL IV PRN (17:26)
[2021-11-20] MEDS ORDERED: ePHEDrine sulfate 50 MG/ML AMP IV PRN (17:26)
[2021-11-20] MEDS ORDERED: PROMETHAZINE HCL 12.5 MG in SODIUM CHLORIDE 0.9% 50 ML IV PRN (17:26)
[2021-11-20] MEDS ORDERED: HYDROCODONE/ACETAMOPHEN 5/325MG TAB PO PRN (18:10)
--- NOTE | 2021-11-20 18:55 | Anesthesiology Progress Note ---
Date of Service November 20, 2021 Anesthesia Post Procedure Vital Signs Vital Signs: Temp Pulse Resp BP BP Pulse Ox 11/20/21 18:46 36.4 C L 11/20/21 18:05 36.4 C L 73 13 132/77 98 11/20/21 17:55 36.4 C L 74 12 132/75 99 11/20/21 17:45 71 12 134/74 99 11/20/21 17:35 71 12 134/74 99 11/20/21 17:25 75 17 135/74 100 11/20/21 17:17 36.3 C L 78 15 141/77 H 100 11/20/21 11:26 36.8 C 77 18 159/79 H 168/89 H 100 Transfer of Care Handoff Completed per policy Notes Mental Status: alert / awake / arousable Patient Amnestic to Procedure: Yes Nausea / Vomiting: adequately controlled Pain: adequately controlled Airway Patency, RR, SpO2: stable & adequate BP & HR: stable & adequate Hydration State: stable & adequate Anesthetic Complications: no major complications apparent
[2021-11-20] MEDS: LACTATED RINGER'S 1,000 ML IV SCH (19:00)
[2021-11-20] MEDS: MoRPHine SULFATE 4 MG/ML 1 ML CARP\\VIAL IV PRN ×2 (19:08→22:16)
[2021-11-20] MEDS ORDERED: GLUCOSE 10 TABS/TUBE PO PRN (19:35)
[2021-11-20] MEDS ORDERED: DEXTROSE 50% 50 ML SYRINGE IV PRN (19:35)
[2021-11-20] MEDS ORDERED: CARBOHYDRATES FOR HYPOGLYCEMIA PO PRN (19:35)
[2021-11-20] MEDS ORDERED: ICU PROTOCOL FOR HYPERGLYCEMIA PRN (19:35)
[2021-11-20] MEDS ORDERED: GLUCAGON FOR INJ 1 MG VIAL SQ PRN (19:35)
[2021-11-20] MEDS ORDERED: GLUCOSE 40% GEL 15 GM TUBE PO PRN (19:35)
--- NOTE | 2021-11-20 19:46 | Critical Care Consultation ---
Date of Consultation November 20, 2021 Assessment & Plan (1) Admitted to intensive care unit: Reason Critically Ill: 66-year-old male who is status post RIGHT-sided carotid endarterectomy requiring close hemodynamic monitoring and close monitoring of surgical site status post vascular surgical intervention. NEURO - * CAM ICU: NEGATIVE * Pain: P.o. Rx per orders. CARDIAC/VASCULAR - * Status post RIGHT carotid endarterectomy: * No reported complications intraoperatively. EBL 150 mL. Surgical site clean, dry, intact. * Monitor dressing/wound status post vascular intervention. * Continue orders per vascular surgery. * Coronary artery disease, hypertension, hyperlipidemia: * Continue home medications tomorrow morning if able. * Monitor on telemetry. RESPIRATORY - * Monitor airway status post carotid intervention. GI/NUTRITION - * Progress diet as tolerated * Prophylaxis: Protonix RENAL/LYTES - * No significant electrolyte derangements * IVF: Lactated Ringer's at 125 mL. - * No concerns at this time * Strict I&Os. ENDO - * DMII * BSGs per unit protocol. ISS --> gtt per unit policy. HEME - * Stable H&H on 11/03 * EBL 150 mL ID - * Pre/perioperative antibiotics per surgical team. LINES/IV ACCESS - * PIVs x2 * LEFT Radial Arterial Line DVT PROPHYLAXIS - * Hold on chemoprophylaxis s/p CEA. Defer to vascular surgery. * SCDs I have personally spent 35 minutes of critical care time in the direct management of this patient. This is a life/limb threatening event. This includes time spent evaluating patient, direct bedside care, chart review, placing orders, interpretation of diagnostic studies, discussion with consultants, patient, and family members, as well as other required patient management activities. This time is exclusive of all separately billable procedures, and teaching time and separate from and in addition to any other critical care service time. Thank you for allowing us to participate in the care of this patient. Please refer to my attending physician's documentation for any further recommendations. (2) S/P carotid endarterectomy: (3) Stenosis of right internal carotid artery: (4) Dyslipidemia: (5) Diabetes type 2, uncontrolled: (6) Coronary artery disease: (7) GERD (gastroesophageal reflux disease): (8) Hypertension: History of Present Illness Attending Physician: Jeff Perera MD History of Present Illness Patient is a 66-year-old male with a significant past medical history of coronary artery disease status post CABG in March 2021, hypertension, hyperlipidemia, GERD, and carotid artery stenosis. Patient had been having issues with amaurosis fugax and was evaluated by his PCP and subsequently vascular surgery. Patient was initially slated for a RIGHT-sided carotid endarterectomy on 11/05, however the patient went into a junctional bradycardic rhythm while on the table and procedure was held until changes could be made. Patient underwent successful RIGHT-sided CEA today without complication noted intraoperatively. Patient brought to the ICU for ongoing monitoring status post CEA. Upon evaluation in the ICU, the patient is awake, alert, and oriented. He does complain of some soreness to the RIGHT-sided neck and some soreness of his throat which he describes as scratchy and has some discomfort with swallowing. Otherwise, he denies complaints of blurry vision, double vision, lightheadedness, headaches, inability to swallow, difficulty breathing, nausea, vomiting, chest pain, or abdominal discomfort. He denies any numbness or weakness into his extremities. Allergies Allergy/AdvReac Type Severity Reaction Status Date / Time acetaminophen AdvReac Intermediate Congested Verified 11/20/21 11:17 ~ scratchy throat bee venom protein (honey bee) AdvReac Intermediate swelling Verified 11/20/21 11:17 at site of sting Home Medications Medication Instructions Recorded Confirmed Type aspirin 81 mg chewable tablet 81 mg PO QAM tab 04/23/21 11/20/21 History atorvastatin 80 mg tablet 80 mg PO QPM 04/23/21 11/20/21 History clopidogrel 75 mg tablet 75 mg PO QAM tab 04/23/21 11/20/21 History pantoprazole 40 mg tablet,delayed 40 mg PO QPM tab 04/23/21 11/20/21 History release lisinopril 5 mg tablet 5 mg PO QPM 10/30/21 11/20/21 History metformin 750 mg tablet,extended 750 mg PO BID 10/30/21 11/20/21 History release 24 hr oxycodone-acetaminophen 5 mg-325 1 tab PO Q8H PRN #7 tab 11/06/21 11/20/21 Rx mg tablet (Percocet) metoprolol tartrate 25 mg tablet 12.5 mg PO BID tab 11/11/21 11/20/21 History Patient History Medical History Barretts esophagus Gets routine EGDs- stable per patient Cardiomyopathy Resolved per cardio records EF 50-55% per 06/2021 ECHO Coronary artery disease CABG x3 03/21/2021: Barreto to LAD, saphenous vein graft to diagonal, saphenous vein graft to PDA Diabetes type 2, uncontrolled Glucose stable per patient - improved recently- fasting glucose usually below 150 GERD (gastroesophageal reflux disease) Well controlled and stable Hyperlipidemia Hypertension Junctional bradycardia NSTEMI (non-ST elevated myocardial infarction) (~03/19/21) Had heart cath @ [facility] no stents--sent to [facility] for CABG x3 (03/21/21)---follows with Dr. Arenas On anticoagulant therapy Plavix daily Surgical History H/O carotid endarterectomy R CEA 11/05/21: Grade 1 view with glidescope #4 ETT 7.5. Per anesthesia progress note: on incision, pt became hypertensive to [id number]. Pt then became bradycardic into the low 30s. BP began to decrease. Junctional rhythm seen by vascular surgeon. FARM MECH[employer]IC gave 300 mcg of atropine and 10 mg ephedrine and 0.2 Robinal. I arrived and BP was SB at 41. SBP>120. Vascular decided to stop the case. pt was extubated. pt was moving all four limbs and responding appropriately. History of cardiac cath (~03/19/21) for NSTEMI @ [facility]- had subsequent CABG History of colonoscopy History of coronary artery bypass graft x 3 (~03/21/21) @ [facility] History of esophagogastroduodenoscopy (EGD) History of open reduction and internal fixation (ORIF) procedure left foot--hardware in place History of tooth extraction Family History Other No family history of adverse response to anesthesia Social History Smoking Status: Never smoker Second Hand Exposure: No; Do You Dip or Chew Tobacco: No; Hx Alcohol Use: Yes Alcohol type: hard liquor Hx Substance Use: No Preferred Language: Spanish Communication Ability: Effective Aerial Photographer Required: No Beliefs That Will Affect Care: None marital status: Current Living Situation: Spouse current occupational status: employed 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 All else were negative. Physical Exam Physical Exam: VITAL SIGNS - Vital signs and nursing notes were reviewed. GENERAL - 66-year-old male appearing his stated age who is in no acute distress. Communicates well with provider and answers questions appropriately. HEAD - NC/AT. EYES - PERRL with EOMI bilaterally. Sclera anicteric. EARS - No deformities of external structures noted on gross examination bilaterally. NOSE - Midline and without cyanosis. No epistaxis or purulent drainage noted. MOUTH/OROPHARYNX - Without perioral cyanosis. Buccal mucosa pink and moist. NECK - RIGHT sided CEA surgical dressing site clean, dry, and intact. LUNGS - Chest wall symmetric without accessory muscle use, intercostals retractions, or central cyanosis. Normal vesicular breath sounds CTA B/L. No wheezes, rales, or rhonchi appreciated. CARDIAC - RRR with S1/S2. No murmur, rubs, or gallops appreciated. No reproducible tenderness to palpation appreciated over the anterior chest wall. ABDOMEN - Abdominal contour flat without pulsations or visible masses. BS normoactive all four quadrants. No tenderness, palpable masses, hepatosplenomega ly, or ascites noted. EXTREMITIES - No clubbing or peripheral cyanosis. No pretibial edema present. +3/5 radial and dorsalis pedis pulses palpated throughout. +5/5 strength noted in UE/LE bilaterally. NEUROLOGIC - Cranial nerves II through XII grossly intact. Sensory intact to light touch throughout. PSYCH - A&Ox3 and cooperates fully with examiner. Pt is very pleasant and interacts well with examiner. Results & Data Results & Data ([facility]) Vital Signs (Past 12 Hours) Vital Signs Temp Pulse Resp BP BP Pulse Ox 11/20/21 19:00 83 13 115/55 L 122/78 97 11/20/21 18:46 36.4 C L 11/20/21 18:30 79 18 125/59 L 128/85 98 11/20/21 18:05 36.4 C L 73 13 132/77 98 11/20/21 17:55 36.4 C L 74 12 132/75 99 11/20/21 17:45 71 12 134/74 99 11/20/21 17:35 71 12 134/74 99 11/20/21 17:25 75 17 135/74 100 11/20/21 17:17 36.3 C L 78 15 141/77 H 100 11/20/21 11:26 36.8 C 77 18 159/79 H 168/89 H 100 Coding Level of Care Code Critical Care 1st 30-74 mins Diagnoses Admitted to intensive care unit Z78.9 S/P carotid endarterectomy Z98.890 Stenosis of right internal carotid artery I65.21 Dyslipidemia E78.5 Diabetes type 2, uncontrolled E11.65 Coronary artery disease I25.10 GERD (gastroesophageal reflux disease) K21.9 Hypertension I10 Hypertension type: unspecified Time Spent (min) 35 (1) Hypertension Hypertension type: unspecified Qualified Code(s): I10 - Essential (primary) hypertension
[2021-11-20] MEDS: ceFAZolin 2000MG 2,000 MG/15 ML SYR IV SCH (20:10)
[2021-11-20] MEDS: METOPROLOL TARTRATE 25 MG TAB PO SCH (20:11)
[2021-11-20] MEDS ORDERED: lisinopril 5 MG TAB PO SCH (21:00)
[2021-11-20] MEDS ORDERED: ATORVASTATIN 40 MG TAB PO SCH (21:00)
[2021-11-20] MEDS ORDERED: PANTOprazole 40 MG TAB PO SCH (21:00)
[2021-11-21] MEDS: LACTATED RINGER'S 1,000 ML IV SCH (02:47)
[2021-11-21] MEDS: MoRPHine SULFATE 4 MG/ML 1 ML CARP\\VIAL IV PRN (02:48)
[2021-11-21] MEDS: ceFAZolin 2000MG 2,000 MG/15 ML SYR IV SCH (04:58)
[2021-11-21 05:52] LABS: Basophils # (auto) 0.04 K/uL (0-0.2); Basophils % (auto) 0.5 %; Eosinophils # (auto) 0.07 K/uL (0-0.5); Eosinophils % (auto) 0.8 %; Hematocrit (blood only) 30.9 % (42-52); Hemoglobin 10.6 g/dL (14.0-18.0); Immature Granulocytes # (auto) 0.02 K/uL (0.00-0.02); Immature Granulocytes % (auto) 0.2 %; Lymphocytes # (auto) 2.05 K/uL (1.2-3.4); Lymphocytes % (auto) 23.5 %; Mean Corpuscular Hemoglobin 33.1 pg (25-34); Mean Corpuscular Hgb Conc 34.3 g/dL (32-36); Mean Corpuscular Volume 96.6 fL (80-100); Mean Platelet Volume 9.6 fL (7.4-10.4); Monocytes # (auto) 0.74 K/uL (0.11-0.59); Monocytes % (auto) 8.5 %; Neutrophils # (auto) 5.81 K/uL (1.4-6.5); Neutrophils % (auto) 66.5 %; Platelet Count 229 K/uL (130-400); RDW Coefficient of Variation 13.2 % (11.5-14.5); RDW Standard Deviation 46.5 fL (36.4-46.3); White Blood Count 8.73 K/uL (4.8-10.8)
[2021-11-21 06:10] LABS: BUN Creatinine Ratio 17.2 (10-20); Calcium 7.5 mg/dl (8.5-10.1); Creatinine Clr Calc Pharmacy 94.2 ml/min; Est GFR (African American) 105.7 ml/min; Est GFR (Non-African American) 91.2 ml/min; Phosphorus 4.3 mg/dl (2.5-4.9); Potassium 3.9 mmol/L (3.5-5.1)
[2021-11-21] MEDS: METOPROLOL TARTRATE 25 MG TAB PO SCH (07:39)
[2021-11-21] MEDS: MAGNESIUM SULFATE / D5W 1 GM/100 ML BAG IV SCH ×2 (07:39→09:50)
--- NOTE | 2021-11-21 07:59 | Critical Care Progress Note ---
Date of Service November 21, 2021 Assessment & Plan (1) Admitted to intensive care unit: (2) S/P carotid endarterectomy: (3) Dyslipidemia: (4) Diabetes type 2, uncontrolled: (5) Coronary artery disease: (6) GERD (gastroesophageal reflux disease): (7) Hypertension: Plan: Impression: 66-year-old male status post right carotid endarterectomy admitted to the ICU postprocedure for monitoring. He is done well overnight. Recommendations: 1. Post right carotid endarterectomy: Blood pressure controls is adequate. Wound per vascular surgery. No neurological deficits. 2. Hypertension: Well-controlled. Discontinue arterial line. Continue lisinopril metoprolol 3. Advance diet as tolerated. Okay to stop IV fluids. Home PPI in place 4. Out of bed to chair as tolerated. 5. Diabetes: Glycemic control per protocol. Can restart metformin. 6. Electrolytes replaced. Patient is doing well clinically. Ultimate disposition per vascular surgery. Critical care services will sign off at this point time. Feel free to contact us if we can be of additional assistance Admission and Anticipated Discharge Date Admission Date: November 20, 2021 Subjective Patient seen and examined. EMR reviewed. Discussed with critical care nurse and with patient at bedside. Patient is doing well. He has some slight tenderness in his neck. No speech or swallowing difficulties. No new neurological complaints. Is been hemodynamically stable. Review of Systems Review of Systems: All systems reviewed & are unremarkable except as noted in Subjective Physical Exam Constitutional: WD/WN, vitals as above Neck: trachea midline, no thyromegaly Dressing clean dry and intact. Respiratory: normal respiratory effort, lungs clear to auscultation Cardiovascular: RRR, no murmur, no edema Gastrointestinal (Abdomen): normal bowel sounds, soft, nontender, no hepatosplenomegaly Musculoskeletal: Extremities: extremities normal to inspection Skin: no rashes, warm and dry Neurologic: Nonfocal exam Lymphatic: no cervical lymphadenopathy Results & Data Results & Data ([facility]) Vital Signs (Past 12 Hours) Vital Signs Temp Pulse Resp BP Pulse Ox 11/21/21 06:01 37.1 C 84 20 125/70 100 11/21/21 05:00 76 8 L 133/75 99 11/21/21 04:00 37.1 C 72 13 121/66 98 11/21/21 03:00 89 18 138/87 99 11/21/21 02:00 37.0 C 70 14 119/65 98 11/21/21 01:40 73 112/47 L 11/21/21 01:00 71 14 114/65 100 11/21/21 00:00 37.0 C 107 H 20 138/93 96 11/20/21 23:57 80 11/20/21 23:00 85 10 L 109/71 94 11/20/21 22:00 36.8 C 85 8 L 108/65 95 11/20/21 21:06 89 14 121/70 96 11/20/21 20:00 83 11 L 124/72 98 Critical Care Results & Data Vital Signs (Past 12 Hours) Vital Signs Temp Pulse Resp BP Pulse Ox 11/21/21 06:01 37.1 C 84 20 125/70 100 11/21/21 05:00 76 8 L 133/75 99 11/21/21 04:00 37.1 C 72 13 121/66 98 11/21/21 03:00 89 18 138/87 99 11/21/21 02:00 37.0 C 70 14 119/65 98 11/21/21 01:40 73 112/47 L 11/21/21 01:00 71 14 114/65 100 11/21/21 00:00 37.0 C 107 H 20 138/93 96 11/20/21 23:57 80 11/20/21 23:00 85 10 L 109/71 94 11/20/21 22:00 36.8 C 85 8 L 108/65 95 11/20/21 21:06 89 14 121/70 96 11/20/21 20:00 83 11 L 124/72 98 Lab & Micro Results (Past 24 Hours) RBC 3.20 M/uL (4.7-6.1) L 11/21/21 WBC 8.73 K/uL (4.8-10.8) 11/21/21 Hgb 10.6 g/dL (14.0-18.0) L 11/21/21 Hct 30.9 % (42-52) L 11/21/21 MCV 96.6 fL (80-100) 11/21/21 MCH 33.1 pg (25-34) 11/21/21 MCHC 34.3 g/dL (32-36) 11/21/21 RDW Standard Deviation 46.5 fL (36.4-46.3) H 11/21/21 RDW Coefficient of Variation 13.2 % (11.5-14.5) 11/21/21 Plt Count 229 K/uL (130-400) 11/21/21 MPV 9.6 fL (7.4-10.4) 11/21/21 Neutrophils (%) (Auto) 66.5 % 11/21/21 Lymphocytes (%) (Auto) 23.5 % 11/21/21 Monocytes # (Auto) 0.74 K/uL (0.11-0.59) H 11/21/21 Eosinophils # (Auto) 0.07 K/uL (0-0.5) 11/21/21 Immature Granulocyte % (Auto) 0.2 % 11/21/21 Neutrophils # (Auto) 5.81 K/uL (1.4-6.5) 11/21/21 Lymphocytes # (Auto) 2.05 K/uL (1.2-3.4) 11/21/21 Monocytes # (Auto) 0.74 K/uL (0.11-0.59) H 11/21/21 Eosinophils # (Auto) 0.07 K/uL (0-0.5) 11/21/21 Basophils # (Auto) 0.04 K/uL (0-0.2) 11/21/21 Immature Granulocyte # (Auto) 0.02 K/uL (0.00-0.02) 11/21/21 Na 139 mmol/L (136-145) 11/21/21 K 3.9 mmol/L (3.5-5.1) 11/21/21 Cl 106 mmol/L (98-107) 11/21/21 CO2 26 mmol/L (21-32) 11/21/21 Anion Gap 7 (3-11) 11/21/21 BUN 15 mg/dl (6-23) 11/21/21 Creatinine 0.87 mg/dl (0.6-1.4) 11/21/21 Estimated GFR ( Amer) 105.7 ml/min 11/21/21 Estimated GFR (Non-Af Amer) 91.2 ml/min 11/21/21 BUN/Creatinine Ratio 17.2 (10-20) 11/21/21 Glu 159 mg/dl (70-99(Fasting)) H 11/21/21 Ca 7.5 mg/dl (8.5-10.1) L 11/21/21 Phosphorus Level 4.3 mg/dl (2.5-4.9) 11/21/21 Mg 1.0 mg/dl (1.7-2.4) L 11/21/21 05:32 11/21/21 Calcium Level 7.5 mg/dl (8.5-10.1) L 11/21/21 05:32 11/21/21 I & O Totals 24 Hours 11/20/21 11/21/21 11/22/21 06:59 06:59 06:59 Intake Total 1971.917 / 7 Output Total 630 / 630 Balance 1342.917 / 1342.917 Cumulative 11/11/21 13:53 thru 11/21/21 06:09 Intake Total 1971.7 Output Total 630 Balance 1342.917 RT Ventilator Mngmt (Last Documented) Ventilator Ordered Settings Respiratory Rate 20 11/21/21 06:01 Ventilator - PT Measurements Respiratory Rate 20 Coding Level of Care Code 63583 Subseq Hosp Care Lvl 2 Diagnoses Admitted to intensive care unit Z78.9 S/P carotid endarterectomy Z98.890 Dyslipidemia E78.5 Diabetes type 2, uncontrolled E11.65 Coronary artery disease I25.10 GERD (gastroesophageal reflux disease) K21.9 Hypertension I10 Hypertension type: unspecified (1) Hypertension Hypertension type: unspecified Qualified Code(s): I10 - Essential (primary) hypertension
[2021-11-21] MEDS ORDERED: CLOPIDOGREL BISULFATE 75 MG TAB PO SCH (09:00)
[2021-11-21] MEDS ORDERED: ASPIRIN 81 MG ECTAB PO SCH (09:00)
--- NOTE | 2021-11-21 09:27 | Surgery Progress Note ---
Date of Service November 21, 2021 Assessment & Plan (1) S/P carotid endarterectomy: Plan: This patient underwent an uneventful right carotid enterectomy. He is doing well postop without any neurodeficits. He will be discharged today to self-care at home. Admission and Anticipated Discharge Date Admission Date: November 20, 2021 Subjective This patient is postoperative day 1 from a right carotid enterectomy. He has no complaints. He has no focal neurodeficits according to him. He is able to swallow without difficulty. He did eat breakfast. He has no speech dysfunction. His only complaint is a sore throat. Physical Exam Constitutional: WD/WN, vitals as above Neck: trachea midline Respiratory: normal respiratory effort; no respiratory distress Cardiovascular: Rate/Rhythm: regular rate and regular rhythm Musculoskeletal: no cyanosis or clubbing, extremities motor strength 5/5 Extremities: strength 5/5 throughout Skin: + incision Incision is dry and clean. There is no hematoma or ecchymosis present. Neurologic: CN's II-XI intact bilaterally and moves all extremities Speech / Cognition: normal speech Cranial Nerves: PERRL, normal facial strength and tongue midline Psychiatric: Orientation: alert and oriented x 3 Results & Data ([facility]) Vital Signs (Past 12 Hours) Vital Signs Temp Pulse Pulse Resp BP BP Pulse Ox 11/21/21 08:00 71 85 18 128/73 97 11/21/21 07:00 83 17 152/80 H 99 11/21/21 06:01 37.1 C 84 20 125/70 100 11/21/21 05:00 76 8 L 133/75 99 11/21/21 04:00 37.1 C 72 13 121/66 98 11/21/21 03:00 89 18 138/87 99 11/21/21 02:00 37.0 C 70 14 119/65 98 11/21/21 01:40 73 112/47 L 11/21/21 01:00 71 14 114/65 100 11/21/21 00:00 37.0 C 107 H 20 138/93 96 11/20/21 23:57 80 11/20/21 23:00 85 10 L 109/71 94 11/20/21 22:00 36.8 C 85 8 L 108/65 95
--- NOTE | 2021-11-21 09:37 | Discharge Summary ---
Date of Service November 21, 2021 Admission HPI Per Admitting Provider Date of Service November 05, 2021 History of Present Illness Primary Care Provider: Wilfred Weber MD October 30, 2021 Name: FRANCESCA SLADE Patient Number: [id number] : 1955 Date of Service: 10/30/2021 Dear ,, I had the pleasure today of meeting Mr. Slade at [facility] vascular surgery clinic with Dr. Perera. As you are aware, he is a very pleasant 66 years old male with significant past medical history of hypertension, diabetes and coronary artery disease. He has been having intermittent visual changes over the last 3 months. He described it as intermittent vision loss affecting only the right eye. It got worse with time and today he got evaluated by ophthalmology. This was initially attributed to diabetes however, a duplex ultrasound of the carotid artery demonstrated significant stenosis. He denies weakness or numbness, he does not have a slurred speech. his symptoms are isolated for right amaurosis fugax. He is functionally independent in ambulates without difficulty. He does not have claudication or rest pain. He is able to climb a flight of stairs without difficulty. He sleeps on 2 small pillows but he does not have shortness of breath. Of note, Mr. Slade underwent emergent CABG back in March from which he recovered with no complications. He was kept on aspirin and Plavix since the procedure. REVIEW OF SYSTEMS: 14 point ROS was performed, pertinent positive and negative aspects were mentioned in the HPI PAST MEDICAL HISTORY: Hypertension, GERD, type 2 diabetes, history of esophageal stricture, CAD status post CABG March 2021. PAST SURGICAL HISTORY: CABG March 2021, serial dilation for Bass's esophagus. SOCIAL HISTORY: Never smoker, functionally independent FAMILY HISTORY: Noncontributory MEDICATIONS: Pantoprazole 40 mg daily, atorvastatin 80 mg daily, metoprolol tartrate 25 mg twice daily, Plavix 75 mg daily, aspirin 81 mg daily, lisinopril 5 mg daily, metformin 750 mg ALLERGIES: Acetaminophen, bee sting PHYSICAL EXAM: VITALS: BP 164/86 on the left, 166/80 on the right, heart rate 64, satting 98% on room air GENERAL: Sitting comfortably in chair no acute distress CARDS: Regular PULM: Nonlabored breathing on room air ABDOMEN: Soft EXTREMITIES: Warm, well-perfused. Palpable pedal and radial pulses NEURO: Grossly intact cranial nerves II through XII. Intact motor and sensory function. IMAGING: Right ICA with peak systolic velocity of 451, end-diastolic 238, ICA to CCA ratio 8.8 indicating 80 to 99% stenosis of the right ICA. No hemostatic dynamically significant stenosis of the left ICA. Antegrade flow in bilateral vert.. ASSESSMENT AND PLAN: In summary, Mr. Slade is a very pleasant 66-year-old male with is symptomatic severe right carotid artery stenosis. We counseled him regarding the signs and symptoms of stroke and advised him to call 911 immediately should he develop those symptoms. He is consented to undergo right carotid endarterectomy next week. He may continue his aspirin and Plavix as indicated throughout the surgery. His grandson is graduating college in [place] on Wednesday and he requested his surgery to be afterwards. We will discuss that with our schedulers. Thank you for entrusting us with the care of this patient. Please do not hesitate to call us with questions or concerns. I saw and evaluated the patient. Discussed with the resident and agree with the resident's findings and plan as documented in the resident's note. Signature Line Electronic Signature on File CC: Cuauhtemoc Arenas MD [facility] [address] [facility] [id number] * CC: Shraddha Rhodes DO [address] [place] [id number] CC: Wilfred Weber MD [address] [place] [id number] Nikkie Seals MD Author Signature Dt/Tm: 10/30/2021 01:00 PM Resident Division of Vascular Surgery Electronically Reviewed/Signed by: MD Valentin Postignkamaljit Signature Dt/Tm: 11/03/2021 12:03 PM Claims Service Representative Pan Gaitan [facility] [address], [facility] [address] [place] [address] BN Result Type: .Outpt Ltr Date of Service: October 30, 2021 12:48 EDT Authorization Status: Final Author or Import Date: MD Seals Besma on October 30, 2021 12:51 EDT Verified By: MD Dilma, Jeff Fletcher on November 03, 2021 12:03 EDT Encounter info: [id number], [facility], Clinic, 10/30/2021 - 10/30/2021 Allergies Allergy/AdvReac Type Severity Reaction Status Date / Time acetaminophen AdvReac Intermediate Congested Verified 11/05/21 06:20 ~ scratchy B throat bee venom protein (honey bee) AdvReac Intermediate swelling Verified 11/05/21 06:21 at site of sting Home Medications Medication Instructions Recorded Confirmed Type aspirin 81 mg chewable tablet 81 mg PO QAM tab 04/23/21 11/05/21 H istory atorvastatin 80 mg tablet 80 mg PO QPM 04/23/21 11/05/21 Histo ry clopidogrel 75 mg tablet 75 mg PO QAM tab 04/23/21 11/05/21 Histor y metoprolol tartrate 25 mg tablet 25 mg PO BID 04/23/21 2 History pantoprazole 40 mg tablet,delayed 40 mg PO QPM tab 04/23/21 History release lisinopril 5 mg tablet 5 mg PO QPM 10/30/21 11/05/21 History metformin 750 mg tablet,extended 750 mg PO BID 10/30/21 2 History release 24 hr Past Med/Surg History Medical History Barretts esophagus Gets routine EGDs- stable per patientCardiomyopathy Resolved per cardio records EF 50-55% per 06/2021 E[facility]OCoronary artery disease CABG x3 03/21/2021: Barreto to LAD, saphenous vein graft to diagonal, saphenous vein graft to PDADiabetes type 2, uncontrolled Glucose stable per patient - improved recently- fasting glucose usually below 150GERD (gastroesophageal reflux disease) Well controlled and stableHyperlipidemia Hypertension NSTEMI (non-ST elevated myocardial infarction) (~03/19/21) Had heart cath @ [facility] no stents--sent to [facility] for CABG x3 (03/21/21)---follows with Dr. Timmons anticoagulant therapy Plavix daily Surgical History History of cardiac cath (~03/19/21) for NSTEMI @ [facility]- had subsequent CABGHistory of colonoscopy History of coronary artery bypass graft x 3 (~03/21/21) @ [facility] (E[facility]) History of open reduction and internal fixation (ORIF) procedure left foot--hardware in placeHistory of tooth extraction Family History Other No family history of adverse response to anesthesia Social History Smoking Status: Never smoker Second Hand Exposure: No; Do You Dip or Chew Tobacco: No; Tobacco Cessation Education Requested by Patient: No Hx Alcohol Use: Yes Alcohol type: hard liquor Hx Substance Use: No Preferred Language: Sinhala Communication Ability: Effective Morgue Technician Required: No Beliefs That Will Affect Care: None Current Living Situation: Spouse current occupational status: employed current occupation: [employer] Other Information That Helps Us Care for You: No Feels Safe at Home: Yes Safety Concerns: Feels Safe At This Time Assistive Devices: None Results & Data ([facility]) Vital Signs (Past 12 Hours) Vital Signs Temp Pulse Resp BP BP Pulse Ox 11/05/21 06:15 37 C 56 L 18 140/79 139/75 100 Signed By: <Electronically signed by Jeff Perera MD> 11/05/21 0707 Created:11/05/21 0707 The status of this report isSigned. Draft = Not yet reviewed or approved by Medical Physician. Signed = Reviewed and approved by Medical Physic Admission Exam Per Admitting Provider VITALS: BP 164/86 on the left, 166/80 on the right, heart rate 64, satting 98% on room air GENERAL: Sitting comfortably in chair no acute distress CARDS: Regular PULM: Nonlabored breathing on room air ABDOMEN: Soft EXTREMITIES: Warm, well-perfused. Palpable pedal and radial pulses NEURO: Grossly intact cranial nerves II through XII. Intact motor and sensory function. Principal Diagnosis 1. s/p R CEA 2. RICAS with amaurosis Discharge Exam Constitutional WD/WN, vitals as above Neck trachea midline Respiratory normal respiratory effort; no respiratory distress Cardiovascular Rate/Rhythm: regular rate and regular rhythm Musculoskeletal no cyanosis or clubbing, extremities motor strength 5/5 Extremities: strength 5/5 throughout Skin + incision Neurologic CN's II-XI intact bilaterally and moves all extremities Speech / Cognition: normal speech Cranial Nerves: PERRL, normal facial strength and tongue midline Psychiatric Orientation: alert and oriented x 3 Discharge Data Allergies Allergy/AdvReac Type Severity Reaction Status Date / Time acetaminophen AdvReac Intermediate Congested Verified 11/20/21 11:17 ~ scratchy throat bee venom protein (honey bee) AdvReac Intermediate swelling Verified 11/20/21 11:17 at site of sting Consultations 11/20/21 18:10 Consult Instrument Lens Inspector Routine Procedures Performed Operation Date: 11/20/21 12:30 Actual Procedures p Right Carotid Endarterectomy with patch(Right) - Jeff Perera MD Hospital Course (1) S/P carotid endarterectomy: This patient underwent an uneventful right carotid enterectomy. He is doing well postop without any neurodeficits. He will be discharged today to self-care at home. Total Time Total Time Spent Total Time Spent (In Minutes): 0 Discharge Plan Discharge Items Patient Disposition: Home - Self-Care Reason For Visit: Right Internal Carotid Artery Stenosis Discharge Diagnosis: Right carotid stenosis, symptomatic Activity: Per Instructions section Non-emergency contact: Surgeon Call non-emergency contact if: your temperature is above 101.5, your wound has increased redness, your wound has increased drainage and your wound pain has increased Follow-up/Referrals: Wilfred Weber MD [Primary Care Provider] - Diet: Carb Consistent or DM2 and Heart Healthy Addtl Attending Provider Instructions: SPECIAL CARE INSTRUCTIONS: Medications: * Continue to take Aspirin as directed. Incision Care: * You may shower, but do not rub incision. You may let the warm soapy water run over it. Be sure to dry the incision well after bathing. * Do not shave directly over the incision until it is healed. * DO NOT IMMERSE THE INCISION IN A TUB/POOL/etc. UNTIL HEALED. Restrictions: * Do not drive for at least one week or if you are still taking any narcotic pain medication. * Do not lift anything heavier than a gallon of milk for one week after going home. Possible Complications: * Numbness - It is normal to have some numbness around the incision. Numbness can extend beyond the incision to areas of the neck, ear and face. The numbness is due to bruising of nerves during the surgery and will gradually improve over a period of months. * Hoarseness/Difficulty Speaking and Swallowing - The bruising of nerves in the neck can also cause a hoarse voice, difficulty speaking or swallowing. This may improve over time, HOWEVER, if it continues for more than a few days please contact our office ([phone]). * Excessive Swelling - There will be some swelling immediately after surgery which usually resolves within one week. If you notice that the swelling is getting worse, notify your surgeon ([phone]). * Drainage/Bleeding - If there is any drainage or bleeding, it should be a very small amount (less than a teaspoon per day). If you have excessive bleeding or drainage from the incision, call your surgeon ([phone]) right away. ACTIVATION OF EMERGENCY MEDICAL SYSTEM: Call 911, immediately, if you experience any of the following: Warning Signs and Symptoms of Stroke: * Sudden numbness or weakness of the face, arm or leg, especially on one side of the body * Sudden confusion, trouble speaking or understanding * Sudden trouble seeing in one or both eyes * Sudden trouble walking, dizziness, loss of balance or coordination * Sudden severe headache with no cause Do not delay calling 911 if you experience any warning signs or symptoms of a stroke. Delay in seeking medical attention may affect what treatments can be given to you. Risk Factors for Stroke: You can reduce your chances of stroke by working with your medical provider to adopt a healthy lifestyle. Some specific ways to lower your chance of stroke are: * If you are a smoker, now is the time to stop smoking cigarettes * If you are diabetic, improve the control of your blood sugars * Avoid excessive amounts of alcohol * Control high blood pressure * Lose weight if you are overweight * Be sure to lead an active lifestyle * Eat a healthy diet low in salt, cholesterol and fat You should know about other risk factors for stroke that you are unable to control. These include: * Age 55 years or older * Male gender * Certain racial groups: , or / * Family History of Stroke, Mini stroke or Heart Attack * Sickle Cell Disease You will be receiving a call from the Vascular Surgery Nurse after you are discharged. FOLLOW UP VISIT: It is important for you to keep your follow up appointments with your medical provider. Keep any scheduled doctor appointments. Call [phone] to schedule a follow up appointment if one not already scheduled. Pending Studies at Discharge: No Stand-Alone Forms: [facility], Smoking Cessation Medications and DC Order Prescriptions: New oxycodone 5 mg tablet 5 mg PO Q6H PRN (Reason: pain) Qty: 20 RF: 0 Continued metoprolol tartrate 25 mg tablet 12.5 mg PO BID RF: 0 aspirin 81 mg tablet,chewable 81 mg PO QAM RF: 0 clopidogrel 75 mg tablet 75 mg PO QAM RF: 0 pantoprazole 40 mg tablet,delayed release (DR/EC) 40 mg PO QPM RF: 0 atorvastatin 80 mg tablet 80 mg PO QPM RF: 0 metformin 750 mg Tablet Extended Release 24 Hr 750 mg PO BID RF: 0 lisinopril 5 mg Tablet 5 mg PO QPM RF: 0 Discontinued oxycodone-acetaminophen [Percocet] 5-325 mg tablet 1 tab PO Q8H PRN (Reason: pain) Qty: 7 RF: 0 Discharge Orders: Discharge Order (Routine); Ordered 11/21/21 Ordered By: Jeff Perera Admission Data Admit Date/Time: 11/20/21 12:27 Attending Provider: Jeff Perera Admit Provider: Jeff Perera Primary Care Provider: Wilfred Weber Other Providers: Moose Marquis ; Esteban Aguilar ; Clifton Howell ; José Antonio Amaya ; Aj Brenner ; Jimmie Renteria ; Darío Santiago ; Prabhu Osorio ; Roxana Painter
[2021-11-21] MEDS ORDERED: oxyCODONE HCL IR 5 MG TAB (IMMEDIATE RELEASE) PO STA (10:06)
== END 2021-11-21 11:27 | disposition home or self-care (01) | DRG 38 ==
LOC: ASU 10:52 → 1E 12:27